=== PATIENT | female | born 1965 | race Caucasian/White ===

== ENCOUNTER → 2018-02-12 15:50 | Outpatient (CLI) | payer OTHER, SELFPAY ==
--- NOTE | 2018-02-12 15:52 | BD_ITS ---
STUDY: DUAL ENERGY X-RAY ABSORPTIOMETRY / DXA REASON FOR EXAM: Female, 52 years old. Surgical menopause at age 52. Hormone therapy for 7 months. Moderate exercise. Family history of osteopenia. TECHNIQUE: Bone Mineral Density (BMD) measurements of lumbar spine and bilateral hips were obtained. COMPARISON: None. FINDINGS: Lumbar Spine (L1-L4): g/cm2 (1.168) / T-score (0.0) / Z-score (0.7) Findings are suggestive of normal bone density with a low fracture risk. Left Femur Total: g/cm2 (1.172) / T-score (1.3) / Z-score (1.9) Left Femoral Neck: g/cm2 (0.979) / T-score (-0.4) / Z-score (0.5) Right Femur Total: g/cm2 (1.170) / T-score (1.3) / Z-score (1.9) Right Femoral Neck: g/cm2 (1.005) / T-score (-0.2) / Z-score (0.7) BD/Dexa Bone Density Study IMPRESSION: The patient is considered normal as outlined below according to World An[employer] Organization (WHO) criteria with a low fracture risk. Reference Information: The T-score is the number of standard deviations above or below the standard which is normal for young adults at their peak bone mineral density. The World Health Organization (WHO) interprets the T-scores as follows: Above -1 Normal bone density Between -1 and -2.5 Osteopenia Equal to / or below -2.5 Osteoporosis As a practical clinical guideline, osteopenia may be graded as follows: Mild -1 through -1.5 Moderate -1.6 through -2.0 Severe -2.1 through -2.4 The Z-score is the number of standard deviations above or below age-matched controls. A Z-score of less than -1.5 would be considered abnormal. References: 1. NIH Osteoporosis and Related Bone Diseases http://www.osteo.org 2. International Society for Clinical Densitometry http://www.iscd.org 3. National Osteoporosis Foundation http://www.nof.org Electronically Signed: Ty Hardin DO at 11:36 EDT Tel [phone], Service support ,
== END ==
PROVIDERS: Family Provider Family Medicine; PCP Family Medicine; Visit Provider Family Medicine
DX: N95.9 Unspecified menopausal and perimenopausal disorder (principal)
CPT/HCPCS: 77080

== ENCOUNTER → 2018-02-15 15:49 | Outpatient (CLI) | payer OTHER, SELFPAY ==
--- NOTE | 2018-02-15 15:52 | BI_ITS ---
MAMMOGRAPHY - BILATERAL SCREENING REASON FOR EXAM: Female, 52 years old. Routine annual screening examination. PERTINENT HISTORY: Aunt with breast cancer. TECHNIQUE: Digital bilateral breast makenzie (3D mammographic acquisition) in the CC and MLO projections. 2-D mediolateral oblique (MLO) and craniocaudad (CC) views of both breasts were obtained. CAD: Full Field Digital Mammography with Computer Added Detection was performed. COMPARISON: Comparison is made with prior study dated December 01, 2016 and September 10, 2015. FINDINGS: Breast Composition: There are scattered areas of fibroglandular density. There are no dominant masses or suspicious calcifications. Stable bilateral benign appearing axillary lymph nodes. No other significant abnormalities are identified. There has been no significant change since the prior study. BI/SCREENING MAMM (CAD), BILAT IMPRESSION: Stable bilateral screening mammogram. Yearly follow-up mammogram recommended. (A) ASSESSMENT CATEGORY: BIRADS Category 2: Benign. A letter regarding these results will be sent to the patient by the facility within 30 days. Approximately 10% of breast cancers are not detected by mammography. A normal mammogram should not delay biopsy of a clinically suspicious abnormality. [id number] Electronically Signed: iWlmer Hartley MD at 8:39 EDT Tel [phone], Service support ,
== END ==
PROVIDERS: Family Provider Family Medicine; PCP Family Medicine; Visit Provider Family Medicine
DX: Z12.31 Encounter for screening mammogram for malignant neoplasm of breast (principal)
CPT/HCPCS: 77063; 77067

== ENCOUNTER 2018-02-27 12:01 | Day surgery (SDC) | payer OTHER, SELFPAY ==
[2018-02-18 17:24] LABS: Hematocrit 42.3 % (37-47); Hemoglobin 14.1 g/dl (12.0-15.0); Mean Corp Hgb Conc 33.3 g/gl (32-36); Mean Platelet Vol. 8.7 fl (6.2-12.0); Platelet Count 347 K/mm3 (150-450); RBC Distribution Width CV 14.7 % (11.6-14.6); RBC Distribution Width SD 43.5 fl (35.1-43.9); Red Blood Count 5.22 M/mm3 (4.2-5.4); White Blood Count 11.5 K/mm3 (4.4-11.0)
[2018-02-18 17:29] LABS: Scan Indicated on CBC? Y/N NO
[2018-02-18 17:56] LABS: Prothrombin Time (Protime)PT. 12.7 SECONDS (11.7-14.9)
[2018-02-18 17:57] LABS: Partial Thromboplast Time 29.8 Seconds (24.1-36.2)
[2018-02-27] VITALS (11 sets, daily range): BP systolic 94–139; BP diastolic 63–90; PULSE 47–82; RESP 14–18; TEMP 36.1–36.8; O2SAT 94–99; BMI 36.3
--- NOTE | 2018-02-27 12:11 | EKG12_ITS ---
Test Reason : PRE OP Blood Pressure : / mmHG Vent. Rate : 062 BPM Atrial Rate : 062 BPM P-R Int : 172 ms QRS Dur : 088 ms QT Int : 416 ms P-R-T Axes : 042 026 051 degrees QTc Int : 422 ms Normal sinus rhythm with sinus arrhythmia Nonspecific T wave abnormality Abnormal ECG When compared with ECG of 16-JUL-2017 16:55, No significant change was found Confirmed by CARLOS EDUARDO CROOK, HOLLAND ([id number]), editorial manager KATY DIANE ([id number]) on 03/01/2018 9:47:20 AM Referred By: Monae Gutierrez Confirmed By:HOLLAND THIBODEAUX MD
[2018-02-27 12:42] LABS: Anion Gap 6 (5-15); BUN 16 mg/dL (7-18); BUN/Creat Ratio 20.7 RATIO (10-20); Calcium,Total 8.8 mg/dL (8.5-10.1); Chloride 106 mmol/L (98-107); Creatinine, Serum 0.77 mg/dL (0.55-1.02); EST Glomerular Filtration Rate 83 mL/min (>60); Est Glom Filt Rate - Afr Amer 100 mL/min (>60); Glucose 88 mg/dL (74-106); Potassium 3.7 mmol/L (3.5-5.1); Sodium Level 141 mmol/L (136-145)
--- NOTE | 2018-02-27 13:25 | VAGMU_PTH ---
PATIENT: UDAY OLIVIER LOC: [facility] [place] U#:[id number] AGE/SX: 52/F ROOM: RE02/27/[address]: Dr. Monae Gutierrez MD : [id number] BED: DIS: 02/28/2018 SPEC #: [id number] RECD: 02/28/18 09:15 STATUS: EARNEST RICA #: [id number] GENEVA: 02/27/18 13:[address]: Monae Gutierrez DEPT: SURGICAL PATHOLOGY RECD BY: Brock Odonnell ENTERED: 02/28/18 09:39 SP TYPE: VAG MUCOSA OTHR DR: Dr. Jinny Bejarano MD Tissues: Vagina, NOS Procedures: Surgery Specimen Level III HEADER OPERATION: Repair, anterior PRE-OP DIAGNOSIS: cystocele TISSUE SUBMITTED: Vaginal mucosa MICROSCOPIC DIAGNOSIS Vaginal mucosa, tear repair: Fragments of squamous mucosa with reactive changes. SJ:ajay 03/01/18 MICROSCOPIC DESCRIPTION Slides are reviewed. GROSS DESCRIPTION Received in fixative is one container labeled with the patient's name and designated vaginal mucosa. The specimen consists of two pieces of bradley mucosal tissue measuring in aggregate 4.5 x 2.5 x 0.8 cm. No mucosal lesion is identified. Multiple instrumentation aragon are noted. Assembler Fluorescent Lights sections are submitted in 1 cassette. HANSA:ajay 02/28/18 TC:5 CPT: 01230
--- NOTE | 2018-02-27 16:02 | OP.PCM_ITS ---
Operative Report Date of Procedure: 02/27/18 PROCEDURE: Anterior repair Preoperative diagnosis: Moderate cystocele Postop diagnosis: Moderate cystocele Anesthesia: General TRAVIS Escamilla and Dr Cary Surgeon: Monae Gutierrez MD Lamination Assembler: INDRA Molina RN EBL 50 cc Complications: none Drains: Gaming draining clear yellow urine , 30+ cc for case Fluids: replacement LR 800 cc Findings: On exam under anesthesia, the vaginal apex is well supported. Apical cystocele noted with good UVJ support. PATH: Strips of vaginal mucosa. Narrative account: After the risks, benefits and alternatives of the procedure were reviewed with the patient , informed consent was obtained. The patient was taken to the Operating room with an IV running . She was positioned in the dorsal supine position on the operating table and given general anesthesia. Once asleep she was positioned to the dorsal lithotomy position and prepped and draped in the usual sterile fashion. A Gaming catheter was inserted to drain the bladder and left open to drain in the drape and then clamped with a Valencia clamp. The weighted speculum was placed into the vagina and an Allis clamp was placed at the vaginal apex at the corners. A transverse incision was created using the knife and the anterior vaginal mucosa was undermined, dissecting it free from from the underlying pubovesical cervical fascia from the vaginal cuff to a point approximately 1-2 cm away from the urethra. A linear incision was made along the anterior vaginal wall as this step was accomplished. Valencia plication stitches of 1 Vicryl were then placed, reducing the cystocele. The anterior vaginal mucosa was trimmed and the anterior vaginal incision was then repaired with interrupted and figure of eight stitches of 2-0 chromic. Excellent hemostasis was noted. A vaginal packing was then inserted: 1 plain gauze The Gaming was attached to the Gaming bag and clear yellow urine returned. The patient was returned to dorsal supine position and a peripad was placed. She was awakened from general anesthesia and was then transferred to the recovery room bed in stable condition after tolerating the procedure well. Sponge, lap, needle and instrument counts correct times two. Medications given preop and intraoperatively included: Cefotetan IV given marketing automation manager to the operating room. For a complete listing of medications given preop and intraoperatively, please see the anesthesia record.
[2018-02-27] MEDS: Ketorolac 30 MG/ML Syringe IV ×2 (16:06→21:43)
[2018-02-27] MEDS: Lactated Ringers 1,000 ML 125 ML IV (19:57)
[2018-02-27] MEDS: HYDROcodone Bitartrate/Apap 5/325 Tablet PO (19:57)
[2018-02-27] MEDS: Temazepam 15 MG Capsule PO (23:38)
[2018-02-28 03:00] VITALS: BP 102/59; PULSE 48; RESP 16; TEMP 36.6; O2SAT 97
[2018-02-28] MEDS: Ketorolac 30 MG/ML Syringe IV ×2 (03:18→10:33)
[2018-02-28] MEDS: Lactated Ringers 1,000 ML 125 ML IV (03:18)
[2018-02-28 06:36] LABS: Hematocrit 33.4 % (37-47); Hemoglobin 10.7 g/dl (12.0-15.0); Mean Corpuscular Hgb 26.7 pg (27.0-32.0); Mean Corpuscular Volume 83.3 fL (81-99); Mean Platelet Vol. 8.7 fl (6.2-12.0); Platelet Count 250 K/mm3 (150-450); RBC Distribution Width CV 14.5 % (11.6-14.6); RBC Distribution Width SD 43.5 fl (35.1-43.9); Red Blood Count 4.01 M/mm3 (4.2-5.4); White Blood Count 8.5 K/mm3 (4.4-11.0)
[2018-02-28 06:44] LABS: Scan Indicated on CBC? Y/N NO
[2018-02-28] MEDS: Acetaminophen 500 MG Tablet 1000 MG PO (06:54)
[2018-02-28 07:11] VITALS: O2SAT 95
--- NOTE | 2018-02-28 07:43 | PN_ITS ---
Subjective: pod#1 Anterior repair Doing well. no concerns voiced. minimal bleeding. Gaming still in place. IV to S/L Used [place] single dose last pm but declines need of any more. Pain minmima. No N/V. Hoping to go home today. Spouse here visiting prior to going to work. Will return later Objective: Sitting up in chair. Moves around room easily. NAD. - Physical Exam General: Alert, Oriented x3, Cooperative, No apparent distress HEENT: Atraumatic Neck: Supple Abdomen: Soft, Non Tender - Perineum: minimal old bld on packing, removed. Fresh peripad given to apply Extremities: No clubbing, No cyanosis, No edema Neurological: Cranial nerves II-XII grossly intact Psych/Mental Status: Normal Affect Vital Signs Temp Pulse Resp BP Pulse Ox 98 F 48 L 16 102/59 L 95 02/28/ 03:00 02/28/18 03:00 02/28/18 03:00 02/28/18 03:00 02/28/18 07:11 Oxygen Delivery Method Room Air Weight: 93 kg Body Mass Index (BMI) 36.3 Intake and Output for Last 24 Hours 02/26/18 02/27/18 02/28/18 23:59 23:59 23:59 Intake Total 4502 / 4502 2486 / 2486 Output Total 1670 / 1670 250 / 250 Balance 2832 / 2832 2236 / 2236 Laboratory Tests Past 24 Hrs 02/27/18 02/28/18 12:25 06:00 WBC 8.5 RBC 4.01 L Hgb 10.7 L Hct 33.4 L MCV 83.3 MCH 26.7 L MCHC 32.0 RDW 14.5 RDW Differential 43.5 Plt Count 250 MPV 8.7 Sodium 141 Potassium 3.7 Chloride 106 Carbon Dioxide 29.0 Anion Gap 6 BUN 16 Creatinine 0.77 Estim Creat Clear Calc 69.90 Est GFR (MDRD) Af Amer 100 Est GFR (MDRD) Non-Af 83 BUN/Creatinine Ratio 20.7 H Glucose 88 Calcium 8.8 Medical Necessity - Tobacco Use Smoking Status: Never smoker Assessment/Plan POD#1 Anterior repair Stable postop. Increase diet and activity as tolerated. remove Gaming for voiding trial. Dischg home later today if criteria met.
--- NOTE | 2018-02-28 07:44 | PCM.DC ---
You will use the following diet at home:: No restrictions Discharge Activity: May Shower, May Take a Tub Bath - OK to drive if not taking narcotics Return to work on:: 04/15/18 May resume sexual activity in: 6 weeks Lifting Restrictions: 20 # limit for 4-6 wk to allow healing Call your doctor if you observe: Fever of 101 or Higher, Inability to urinate, Inability to have a bowel movement, Using more than one pad per hour, Uncontrolled pain Additional Instructions: Take tylenol 500 mg tabs (1-2 by mouth every 8 hrs as needed for pain). In addition to tylenol you may take EITHER : one or two Aleve every 8 hr by mouth OR Ibuprofen 200 mg tabs 2-3 every 6 hr as needed for pain. Allergies/Adverse Reactions: Allergies codeine Adverse Reaction (Verified 07/12/17 15:13) PANIC ATTACKS oxycodone [From OxyContin] Adverse Reaction (Verified 02/20/18 11:52) Other DIDN'T FEEL LIKE HERSELF, JITTERY Medications to take at Discharge Hydrochlorothiazide 25 mg PO DAILY 10/10/14 Metoprolol(XL)Succ [Toprol Xl (Beta Kailee)] 100 mg PO DAILY 10/10/14 Magnesium 250 mg PO DAILY 07/12/17 [place]-3 Fatty Acids/Fish Oil [Fish Oil 1,000 mg Capsule] 1 tab PO DAILY 07/12/17 Temazepam [Restoril] 15 mg PO QHS 07/12/17 Ibuprofen 800 mg PO Q8H PRN PRN #30 tablet 07/18/17 Losartan Potassium [Cozaar] 25 mg PO DAILY 07/18/17 Estradiol 1 mg PO DAILY 02/20/18 Potassium Chloride [K-Dur] 20 meq PO DAILY 02/20/18 traZODone [Desyrel] 75 mg PO QHS 02/22/18 Primary Care Physician: Jinny Bejarano MD [Primary Care Provider] - Please Follow Up With: Monae Gutierrez MD - [phone] When: in two weeks as scheduled for follow up appointment. Proposed Discharge Date: 02/28/18
--- NOTE | 2018-02-28 07:47 | DCINST_ITS ---
You will use the following diet at home:: No restrictions Discharge Activity: May Shower, May Take a Tub Bath - OK to drive if not taking narcotics Return to work on:: 04/15/18 May resume sexual activity in: 6 weeks Lifting Restrictions: 20 # limit for 4-6 wk to allow healing Call your doctor if you observe: Fever of 101 or Higher, Inability to urinate, Inability to have a bowel movement, Using more than one pad per hour, Uncontrolled pain Additional Instructions: Take tylenol 500 mg tabs (1-2 by mouth every 8 hrs as needed for pain). In addition to tylenol you may take EITHER : one or two Aleve every 8 hr by mouth OR Ibuprofen 200 mg tabs 2-3 every 6 hr as needed for pain. Allergies/Adverse Reactions: Allergies codeine Adverse Reaction (Verified 07/12/17 15:13) PANIC ATTACKS oxycodone [From OxyContin] Adverse Reaction (Verified 02/20/18 11:52) Other DIDN'T FEEL LIKE HERSELF, JITTERY Medications to take at Discharge Hydrochlorothiazide 25 mg PO DAILY 10/10/14 Metoprolol(XL)Succ [Toprol Xl (Beta Kailee)] 100 mg PO DAILY 10/10/14 Magnesium 250 mg PO DAILY 07/12/17 [place]-3 Fatty Acids/Fish Oil [Fish Oil 1,000 mg Capsule] 1 tab PO DAILY Temazepam [Restoril] 15 mg PO QHS 07/12/17 Ibuprofen 800 mg PO Q8H PRN PRN #30 tablet 07/18/17 Losartan Potassium [Cozaar] 25 mg PO DAILY 07/18/17 Estradiol 1 mg PO DAILY 02/20/18 Potassium Chloride [K-Dur] 20 meq PO DAILY 02/20/18 traZODone [Desyrel] 75 mg PO QHS 02/22/18 Primary Care Physician: Jinny Bejarano MD [Primary Care Provider] - Please Follow Up With: Monae Gutierrez MD - [phone] When: in two weeks as scheduled for follow up appointment. Proposed Discharge Date: 02/28/18
[2018-02-28 08:00] VITALS: PULSE 60
[2018-02-28] MEDS: Estradiol 0.5 MG Tablet 1 MG PO (08:44)
[2018-02-28 08:49] VITALS: BP 129/79; PULSE 61; RESP 16; TEMP 36.7; O2SAT 97
[2018-02-28 10:33] VITALS: PULSE 60
[2018-02-28] MEDS: Enoxaparin 40 MG/0.4 ML Syringe SC (10:33)
[2018-02-28] MEDS: Metoprolol(XL)Succ 100 MG Tablet PO (10:33)
[2018-02-28] MEDS: 0.9% NaCl Peripheral Flush Adult/Peds IV (10:33)
[2018-02-28] MEDS: Losartan Potassium 25 MG Tablet PO (10:33)
[2018-02-28] MEDS: hydroCHLOROthiazide 25 MG Tablet PO (10:33)
[2018-02-28 10:49] VITALS: BP 122/73; PULSE 61; RESP 18; TEMP 36.7; O2SAT 97
== END 2018-02-28 11:41 | disposition home or self-care (01) ==
LOC: SDC 12:01 → AC 12:02 → MS3 16:38
PROVIDERS: Family Provider Family Medicine; PCP Family Medicine; Visit Provider Obstetrics & Gynecology
PROC: (CPT 57240; principal; 2018-02-27 13:10)
DX: N81.11 Cystocele, midline (principal); I10 Essential (primary) hypertension; G25.81 Restless legs syndrome; F32.9 Major depressive disorder, single episode, unspecified; F41.9 Anxiety disorder, unspecified; Z78.0 Asymptomatic menopausal state; Z79.899 Other long term (current) drug therapy
CPT/HCPCS: 00942; 57240; 36415; 80048; 85027; 85610; 85730; 86850; 86900; 88304; 93005; 99251; J7120; A4216; G0463; J2405

== ENCOUNTER 2018-08-07 06:27 | Emergency (ER) | payer OTHER, SELFPAY ==
[2018-08-07 06:30] VITALS: BP 186/100; PULSE 122; RESP 18; TEMP 36.9; O2SAT 99; BMI 39.4
[2018-08-07 06:34] VITALS: O2SAT 99
--- NOTE | 2018-08-07 06:57 | RAD_ITS ---
STUDY: X-RAY CHEST REASON FOR EXAM: Female, 53 years old. Dyspnea for one week. Palpitations. TECHNIQUE: PA and lateral chest. COMPARISON: 10/10/2014. FINDINGS: The lungs are clear and expanded. There is no demonstrated pleural abnormality. Normal size heart. Normal mediastinum and boaz. Normal visualized pulmonary arteries. Normal visualized aortic arch and descending thoracic aorta. Normal visualized thoracic spine. Normal visualized ribs, clavicles, and shoulders. There is no demonstrated abnormality of the visualized soft tissue structures of the upper abdomen. RAD/Chest PA and Lateral IMPRESSION: No acute cardiopulmonary disease. Electronically Signed: Sergei Silvestre MD at 7:26 EST , Service support ,
--- NOTE | 2018-08-07 06:57 | EKG12_ITS ---
Test Reason : SOB Blood Pressure : / mmHG Vent. Rate : 120 BPM Atrial Rate : 120 BPM P-R Int : 152 ms QRS Dur : 090 ms QT Int : 336 ms P-R-T Axes : 056 024 054 degrees QTc Int : 474 ms Sinus tachycardia Nonspecific ST abnormality Abnormal ECG Confirmed by CARLOS EDUARDO CROOK, HOLLAND ([id number]), features editor VANIA DAVIS ([id number]) on 08/09/2018 2:35:53 PM Referred By: Confirmed By:HOLLAND THIBODEAUX MD
--- NOTE | 2018-08-07 06:59 | ED.DCSUM_ITS ---
- ER Visit Summary Date of Service: 08/07/18 Chief Complaint: Shortness of breath History of Present Illness: The patient is a 53 F who presents with shortness of breath. Over the past 1-1/2 weeks she has intermittently had episodes where she feels short of breath lightheaded and feels like her heart is racing. This can last 30-45 minutes at a time. Currently she is asymptomatic. No chest pain. No fevers. No vomiting or diarrhea. She does have a history of prior similar symptoms. She had a heart catheterization 10 years ago. She did have some transient atrial fibrillation afterwards. She has not anticoagulated this time. She denies any recent travel surgery mobilization or history of DVT or pulmonary embolism. Physical Examination: Blood pressure 186/100, heart rate 122 vitals otherwise normal Moist mucous membranes Heart regular rhythm tachycardia Lungs are clear Abdomen soft nontender Alert Test Results: EKG shows sinus rhythm at a rate of 120. Chest x-ray and laboratory studies including troponin and d-dimer are pending. Emergency Department Course and Treatment: Initial evaluation as above. Labs have been ordered including d-dimer given her tachycardia shortness of breath and lightheadedness. At the time my reevaluation heart rate was less than 100. Patient will be signed out to the oncoming physician to follow-up on results and make final disposition. Treatment Plan: [] Disposition: [] Impression: [] This note was generated with [employer] dictation software. It may contain incorrect words, spelling, and punctuation that were not noted in review of the chart prior to signing ED Disposition - Plan for ED Patient: Chief Complaint: Shortness of Breath Referrals: Jinny Bejarano MD [Primary Care Provider] -
[2018-08-07 07:14] LABS: D-Dimer Quantitative (DVT/PE) 0.39 FEU/ug/m (0.27-0.49)
[2018-08-07 07:16] LABS: Absolute Lymphocyte Count 2.43 X10^3/ul (0.83-4.51); Absolute Neutrophil Count 7.6 X10^3/uL (2.0-7.7); Basophil# 0.03 X10^3/uL; Basophil% 0.3 % (0-1); Eosinophil# 0.23 X10^3/uL; Eosinophils% 2.1 % (0-5); Hematocrit 43.5 % (37-47); Hemoglobin 14.4 g/dl (12.0-15.0); Lymphocyte # 2.43 X10^3/ul (4.0); Mean Corp Hgb Conc 33.1 g/gl (32-36); Mean Corpuscular Hgb 26.9 pg (27.0-32.0); Mean Corpuscular Volume 81.2 fL (81-99); Mean Platelet Vol. 8.8 fl (6.2-12.0); Monocyte# 0.67 X10^3/uL; Monocyte% 6.1 % (0-10); Neutrophil # 7.63 X10^3/uL (2.7-7.7); Platelet Count 388 K/mm3 (150-450); RBC Distribution Width CV 14.8 % (11.6-14.6); RBC Distribution Width SD 43.9 fl (35.1-43.9); Red Blood Count 5.36 M/mm3 (4.2-5.4)
[2018-08-07 07:20] LABS: POSITIVE COUNT NO; POSITIVE DIFFERENTIAL NO; POSITIVE MORPHOLOGY NO
--- NOTE | 2018-08-07 07:30 | ED.DEP ---
ED Disposition - Plan for ED Patient: Chief Complaint: Shortness of Breath Instructions: ED Palpitations Referrals: Jinny Bejarano MD [Primary Care Provider] -
[2018-08-07 07:32] LABS: BUN 16 mg/dL (7-18); Creatinine, Serum 0.93 mg/dL (0.55-1.02); Glucose 106 mg/dL (74-106)
[2018-08-07 07:33] LABS: Anion Gap 9 (5-15); BUN/Creat Ratio 17.2 RATIO (10-20); Calcium,Total 8.9 mg/dL (8.5-10.1); Chloride 104 mmol/L (98-107); EST Glomerular Filtration Rate 67 mL/min (>60); Est Glom Filt Rate - Afr Amer 81 mL/min (>60); Estimated Creatinine Clearance 54.69 ml/min; Potassium 2.7 mmol/L (3.5-5.1); Sodium Level 138 mmol/L (136-145)
--- NOTE | 2018-08-07 07:35 | ED.DEP ---
ED Disposition - Plan for ED Patient: Chief Complaint: Shortness of Breath Instructions: ED Palpitations, ED Potassium Deficiency Prescriptions: Potassium Chloride [K-Dur] 40 meq PO DAILY #6 tab Referrals: Jinny Bejarano MD [Primary Care Provider] -
[2018-08-07 07:46] VITALS: BP 122/87; PULSE 83; RESP 16; O2SAT 97
== END 2018-08-07 07:50 | disposition home or self-care (01) ==
LOC: ED 07:09
PROVIDERS: Emergency Provider Emergency Medicine; Family Provider Family Medicine; PCP Family Medicine
DX: R00.2 Palpitations (principal); E87.6 Hypokalemia; R06.00 Dyspnea, unspecified; I10 Essential (primary) hypertension; Z79.899 Other long term (current) drug therapy
CPT/HCPCS: 71046; 80048; 84484; 85025; 85379; 93005; 99284

== ENCOUNTER → 2018-09-09 14:16 | Outpatient (CLI) | payer OTHER, SELFPAY ==
[2018-09-09 16:06] LABS: Anion Gap 10 (5-15); BUN 24 mg/dL (7-18); BUN/Creat Ratio 27.6 RATIO (10-20); Calcium,Total 8.7 mg/dL (8.5-10.1); Chloride 106 mmol/L (98-107); Creatinine, Serum 0.87 mg/dL (0.55-1.02); EST Glomerular Filtration Rate 72 mL/min (>60); Est Glom Filt Rate - Afr Amer 87 mL/min (>60); Glucose 93 mg/dL (74-106); Magnesium 2.1 mg/dL (1.6-2.6); Potassium 3.8 mmol/L (3.5-5.1); Sodium Level 140 mmol/L (136-145)
[2018-09-09 16:28] LABS: Rubella IgG 131.8 IU/mL
[2018-09-12 14:55] LABS: Mumps Antibody,IgG 85.2 AU/mL (Immune >10.9); Rubeola IgG Ab 81.7 AU/mL (Immune >29.9)
== END ==
PROVIDERS: Family Provider Family Medicine; PCP Family Medicine; Visit Provider Family Medicine
DX: Z00.00 Encounter for general adult medical examination without abnormal findings (principal); E87.6 Hypokalemia; I10 Essential (primary) hypertension
CPT/HCPCS: 36415; 80048; 83735; 86735; 86762; 86765

== ENCOUNTER → 2019-05-21 07:07 | Outpatient (CLI) | payer OTHER, SELFPAY ==
--- NOTE | 2019-05-21 07:09 | BI_ITS ---
MAMMOGRAPHY - BILATERAL SCREENING REASON FOR EXAM: Female, 53 years old. Routine annual screening examination. PERTINENT HISTORY: Aunt with breast cancer. TECHNIQUE: Digital bilateral breast jai (3D mammographic acquisition) in the CC and MLO projections. 2-D mediolateral oblique (MLO) and craniocaudad (CC) views of both breasts were obtained. CAD: Full Field Digital Mammography with Computer Added Detection was performed. COMPARISON: Comparison is made with prior study dated February 15, 2018 and December 01, 2016. FINDINGS: Breast Composition: There are scattered areas of fibroglandular density. There are no dominant masses or suspicious calcifications. Stable appearance of the bilateral axillary lymph nodes. No other significant abnormalities are identified. There has been no significant change since the prior study. BI/SCREEN MAMM (CAD) W/JAI BILAT IMPRESSION: Stable bilateral screening mammogram. Yearly follow-up mammogram recommended. (A) ASSESSMENT CATEGORY: BIRADS Category 2: Benign. A letter regarding these results will be sent to the patient by the facility within 30 days. Approximately 10% of breast cancers are not detected by mammography. A normal mammogram should not delay biopsy of a clinically suspicious abnormality. [id number] Electronically Signed: Wilmer Hartley, at 9:16 EDT , Service support ,
== END ==
PROVIDERS: Family Provider Family Medicine; PCP Family Medicine; Referring Provider Family Medicine; Visit Provider Family Medicine
DX: Z12.31 Encounter for screening mammogram for malignant neoplasm of breast (principal)
CPT/HCPCS: 77063; 77067

== ENCOUNTER → 2020-05-24 07:02 | Outpatient (CLI) | payer BC, SELFPAY ==
--- NOTE | 2020-05-24 07:04 | BI_ITS ---
MAMMOGRAPHY - BILATERAL SCREENING REASON FOR EXAM: Female, 54 years old. Routine annual screening examination. PERTINENT HISTORY: Aunt with breast cancer. TECHNIQUE: Digital bilateral breast jai (3D mammographic acquisition) in the CC and MLO projections. 2-D mediolateral oblique (MLO) and craniocaudad (CC) views of both breasts were obtained. CAD: Full Field Digital Mammography with Computer Added Detection was performed. COMPARISON: Comparison is made with prior examination dated 05/21/2019 and 02/15/2018. FINDINGS: Breast Composition: There are scattered areas of fibroglandular density. There are no dominant masses or suspicious calcifications. Stable benign-appearing bilateral axillary lymph nodes. No other significant abnormalities are identified. There has been no significant change since the prior study. BI/SCREEN MAMM (CAD) W/JAI BILAT IMPRESSION: Stable bilateral screening mammogram. Yearly follow-up mammogram recommended. (A) ASSESSMENT CATEGORY: BIRADS Category 2: Benign. A letter regarding these results will be sent to the patient by the facility within 30 days. Approximately 10% of breast cancers are not detected by mammography. A normal mammogram should not delay biopsy of a clinically suspicious abnormality. [id number] Electronically Signed: Wilmer Hartley, at 9:16 EDT , Service support ,
[2020-05-24 09:13] LABS: Absolute Lymphocyte Count 1.27 X10^3/uL (0.83-4.51); Absolute Neutrophil Count 7.2 X10^3/uL (2.0-7.7); Basophil# 0.04 X10^3/uL; Basophil% 0.4 % (0-1); Eosinophil# 0.16 X10^3/uL; Eosinophils% 1.7 % (0-5); Hematocrit 43.8 % (37-47); Hemoglobin 13.7 g/dL (12.0-15.0); Lymphocyte # 1.27 X10^3/ul (4.0); Lymphocyte % 13.5 % (19-41); Mean Corp Hgb Conc 31.3 g/dL (32-36); Mean Corpuscular Hgb 26.8 pg (27.0-32.0); Mean Corpuscular Volume 85.7 fL (81-99); Mean Platelet Vol. 8.6 fl (6.2-12.0); Monocyte# 0.62 X10^3/uL; Monocyte% 6.6 % (0-10); NRBC Flagged by Analyzer 0 % (0-5); Neutrophil # 7.24 X10^3/uL (2.7-7.7); Neutrophil % 76.9 % (47-70); Platelet Count 331 K/mm3 (150-450); RBC Distribution Width CV 14.8 % (11.6-14.6); RBC Distribution Width SD 46.5 fl (35.1-43.9); Red Blood Count 5.11 M/mm3 (4.2-5.4); White Blood Count 9.4 K/mm3 (4.4-11.0)
[2020-05-24 09:54] LABS: ALB/GLOB Ratio 0.8 RATIO (0.9-2.4); AST(SGOT) 14 U/L (15-37); Alanine Aminotransfer ALT/SGPT 16 U/L (13-56); Albumin, Serum 3.6 g/dL (3.2-5.0); Alkaline Phosphatase 100 U/L (45-117); Anion Gap 6 (5-15); BUN 19 mg/dL (7-18); BUN/Creat Ratio 22.5 RATIO (10-20); Calcium,Total 9.1 mg/dL (8.5-10.1); Chloride 108 mmol/L (98-107); Cholesterol 220 mg/dL (200); Creatinine, Serum 0.85 mg/dL (0.55-1.02); EST Glomerular Filtration Rate 74 mL/min (>60); Est Glom Filt Rate - Afr Amer 90 mL/min (>60); Globulin 4.3 g/dL (2.2-4.2); Glucose 90 mg/dL (74-106); High Density Lipoprotein 37 mg/dL; Potassium 4.1 mmol/L (3.5-5.1); Protein, Total 7.9 g/dL (6.4-8.2); Sodium Level 140 mmol/L (136-145); Triglycerides 240 mg/dL; Very Low Density Lipoprotein 48 mg/dL (5-40)
== END ==
PROVIDERS: PCP Family Medicine; Referring Provider Family Medicine; Visit Provider Family Medicine
DX: I10 Essential (primary) hypertension (principal); E87.6 Hypokalemia; E78.5 Hyperlipidemia, unspecified; Z12.31 Encounter for screening mammogram for malignant neoplasm of breast
CPT/HCPCS: 36415; 77063; 77067; 80053; 80061; 85025

== ENCOUNTER → 2021-06-09 07:22 | Outpatient (CLI) | payer BC, SELFPAY ==
--- NOTE | 2021-06-09 07:25 | BI_ITS ---
MAMMOGRAPHY - BILATERAL SCREENING 3-D TOMOSYNTHESIS REASON FOR EXAM: Female, 55 years old. SCREENING PERTINENT HISTORY: No significant family history. TECHNIQUE: 2-D mammograms and 3-D Tomosynthesis of the breast (s) were performed. CAD was performed. COMPARISON: 05/24/2020 FINDINGS: The breast composition is heterogeneously dense that can obscure small breast masses. Scattered benign calcifications are seen. No dense spiculated masses or suspicious microcalcifications are identified. No architectural distortion is identified. There is no skin thickening or retraction. There has been no significant change since the prior study. BI/SCREENING MAMM (CAD), BILAT IMPRESSION: No mammographic signs of malignancy. Routine yearly mammograms recommended. ASSESSMENT CATEGORY: BIRADS Category 1: Negative. A letter regarding these results will be sent to the patient by the facility within 30 days. FOLLOW UP RECOMMENDATION: Yearly follow up mammogram recommended. (A) Approximately 10% of breast cancers are not detected by mammography. A normal mammogram should not delay biopsy of a clinically suspicious abnormality. Electronically Signed: Brock Cochran MD at 11:29 EDT Tel , Service support ,
== END ==
PROVIDERS: PCP Family Medicine; Referring Provider Family Medicine; Visit Provider Family Medicine
DX: Z12.31 Encounter for screening mammogram for malignant neoplasm of breast (principal)
CPT/HCPCS: 77067

== ENCOUNTER 2021-12-27 15:28 | Emergency (ER) | payer OTHER, SELFPAY ==
[2021-12-27 15:28] VITALS: BP 133/108; PULSE 87; RESP 18; TEMP 36.2; O2SAT 95; BMI 39.9
--- NOTE | 2021-12-27 15:38 | EKG12_ITS ---
Test Reason : CP Blood Pressure : / mmHG Vent. Rate : 087 BPM Atrial Rate : 087 BPM P-R Int : 148 ms QRS Dur : 088 ms QT Int : 362 ms P-R-T Axes : -03 015 044 degrees QTc Int : 435 ms Normal sinus rhythm Nonspecific T wave abnormality Confirmed by KARL CROOK, DARREN ([id number]), social media editor ALONDRA DENNEY ([id number]) on 12/29/2021 8:58:35 AM Referred By: HELEN Confirmed By:DARREN BARAJAS MD
--- NOTE | 2021-12-27 15:40 | ED.VIS.CHEST ---
HPI History of Present Illness Chief Complaint: Chest Pain Detail of Chief Complaint: Chest pain that started an hour and a half ago Informant: patient Onset/Context/Timing Current Severity: 0/10 Maximum Severity: 610 Narrative Narrative: Patient presents to the emergency department with complaint of chest pain that started an hour and a half ago while at work. Patient was sitting at a computer. She developed what she thought was maybe a cramp in the left side of her chest that radiated through to her back. She denied any shortness of breath with it. She denied nausea or vomiting. She denied diaphoresis. Patient states that the pain would not resolve until she arrived in the emergency department. She is not had pain like that before. Patient states that about 20 years ago she had episodes of chest pain and had a heart catheterization at that time that was unremarkable. She denies recent travel or surgery. She has no history of PE or DVT. No significant family history of heart disease at a young age. Patient states the pain is currently resolved. Prior Similar Symptoms: No PFSH PFSH Home Medications hydrochlorothiazide 25 mg PO DAILY 10/10/14 [History Last Taken 02/26/18 10:00] metoprolol succinate 100 mg PO DAILY 10/10/14 [History Last Taken 02/27/18 06:30] magnesium 250 mg PO DAILY 07/12/17 [History Last Taken 02/26/18 10:00] omega-3 fatty acids-fish oil [Fish Oil] 1 tab PO DAILY 07/12/17 [History Last Taken 02/26/18 10:00] temazepam 15 mg PO QHS 07/12/17 [History Last Taken 02/26/18 22:00] losartan 25 mg PO DAILY 07/18/17 [History Last Taken 02/27/18 06:30] estradiol 1 mg PO DAILY 02/20/18 [History Last Taken 02/26/18 08:00] potassium chloride [K-Dur] 20 meq PO DAILY 02/20/18 [History Last Taken 02/26/18 10:00] trazodone 75 mg PO QHS 02/22/18 [History Last Taken 02/26/18 22:00 75 mg] potassium chloride 40 meq PO DAILY #6 tab 08/07/18 [Rx Last Taken Unknown] Allergy/AdvReac Type Severity Reaction Status Date / Time codeine AdvReac PANIC Verified 12/27/21 15:31 ATTACKS oxycodone [From OxyContin] AdvReac Other Verified 12/27/21 15:31 Social History Smoking Status: Never smoker ROS ROS ED Review of Systems ROS Unobtainable: other Constitutional Constitutional ED: Reports lethargy; Denies chills, fever(s), sweats or weight loss Eyes Eyes: Denies blurry vision, change in vision or diplopia ENT ENT ED: Denies rhinorrhea or sore throat Cardiovascular Cardiovascular: Reports chest pain and racing heartbeat; Denies orthopnea Respiratory/Chest Respiratory/Chest: Reports dyspnea and dyspnea on exertion; Denies cough, orthopnea or sputum Gastrointestinal Gastrointestinal: Denies abdominal pain, diarrhea, nausea or vomiting Genitourinary Genitourinary ED: Denies dysuria, hematuria or urinary frequency Musculoskeletal Musculoskeletal: Denies arthralgias, back pain, myalgias or neck pain Integumentary Denies abscess, Abrasions or rash Neurologic Neurologic: Denies headache(s) or weakness Psychiatric Psychiatric: Denies anxiety, depression or suicidal thoughts Endocrine Endocrinology: Denies polydipsia, polyphagia or polyuria Hematologic/Lymphatic Hematologic/Lymphatic: Denies easy bleeding, easy bruising or lymphadenopathy Allergic/Immunologic Allergic/Immunologic ED: Denies mouth swelling, tongue swelling or urticaria EXAM Physical Exam Const Vital Signs: 12/27/21 15:28 12/27/21 15:43 12/27/21 15:44 Temperature 97.2 F L Temperature Source Temporal Pulse Rate 87 Respiratory Rate 18 Respiratory Effort Normal Non-Labored Blood Pressure 133/108 H Blood Pressure Mean 116 Pulse Ox 95 97 Oxygen Delivery Method Room Air Room Air 12/27/21 18:03 Temperature Temperature Source Pulse Rate 69 Respiratory Rate 18 Respiratory Effort Blood Pressure 129/81 H Blood Pressure Mean 97 Pulse Ox 98 Oxygen Delivery Method Room Air Positive well nourished and well developed General Appearance ED: well developed and NAD HEENT Reports TM's clear and moist mucous membranes normocephalic and atraumatic; Negative for trauma or tenderness Tympanic Membrane ED: Yes TM's clear Eyes PERRL and EOMs intact bilaterally General Eye ED: Negative for pale conjunctiva or scleral icterus Neck no lymphadenopathy, supple and no JVD General: Negative for tenderness Chest Wall inspection of chest normal and palpation of chest normal Chest: Negative for tenderness Resp normal respiratory effort and clear to auscultation bilaterally Effort and Inspection: Negative for respiratory distress or pain with movement Auscultation: Negative for rhonchi, wheezes or diminished lung sounds Cardio regular rate, regular rhythm, S1 normal heart sound, S2 normal heart sound and no murmurs Peripheral Pulses: pulses 2+ throughout GI normal to inspection, nondistended, normoactive bowel sounds, soft to palpation, non-tender, non-distended and no masses Back/Spine no CVA tenderness and no thoracic nor lumbar tenderness Extremity normal to inspection General Extremety ED: Negative for edema General Extremity: Negative for edema Neuro oriented x3, CN's II-XII intact bilaterally, no sensory deficits noted and gait normal Sensorium / Orientation: awake, alert, oriented to person, oriented to place and oriented to time Motor Exam: strength 5/5 throughout and strength abnormal Psych mental status grossly normal Skin no rashes or lesions noted and no wounds Heart Score History: Slightly/Non-Suspicious ECG: Normal Age: >45 - <65 years Risk Factors: 1 or 2 Risk Factors Troponin: </= Normal Limit Score: 2 MDM MDM MDM Narrative Medical decision making narrative: IV line established on arrival. Patient was given aspirin. Patient was pain-free on arrival. Lab work-up was normal. I did do a delta troponin given that she had only had pain for about an hour and a half when she arrived and this too was normal. Patient has a heart score of 2 and I feel is very low risk. She remained pain-free in the department. At this point etiology of her chest pain is unclear. I do not feel she is having acute coronary syndrome. Patient advised to return if worsening pain, exertional dyspnea, or condition should worsen anyway. Lab Data Attestation: I reviewed the patient's lab results. Labs: Laboratory Results - last 24 hr 12/27/21 12/27/21 12/27/21 15:42 15:42 15:42 WBC 10.7 RBC 5.11 Hgb 13.8 Hct 42.5 MCV 83.2 MCH 27.0 MCHC 32.5 RDW Std Deviation 43.0 RDW Coeff of Jeremiah 14.2 Plt Count 355 MPV 8.4 Immature Gran % (Auto) 0.600 Neut % (Auto) 75.4 H Lymph % (Auto) 15.5 L Mathews % (Auto) 7.0 Eos % (Auto) 1.1 Baso % (Auto) 0.4 Absolute Neuts (auto) 8.0 H Absolute Lymphs (auto) 1.65 Nucleated RBC % 0 D-Dimer Quant (PE/DVT) 0.29 Sodium 136 Potassium 3.5 Chloride 103 Carbon Dioxide 28.0 Anion Gap 5 BUN 15 Creatinine 0.93 Estim Creat Clear Calc 52.79 Est GFR (MDRD) Af Amer 80 Est GFR (MDRD) Non-Af 66 BUN/Creatinine Ratio 16.1 Glucose 102 Calcium 9.3 Troponin I High Sens 12/27/21 12/27/21 12/27/21 15:42 16:55 17:53 WBC RBC Hgb Hct MCV MCH MCHC RDW Std Deviation RDW Coeff of Jeremiah Plt Count MPV Immature Gran % (Auto) Neut % (Auto) Lymph % (Auto) Mathews % (Auto) Eos % (Auto) Baso % (Auto) Absolute Neuts (auto) Absolute Lymphs (auto) Nucleated RBC % D-Dimer Quant (PE/DVT) Sodium Potassium Chloride Carbon Dioxide Anion Gap BUN Creatinine Estim Creat Clear Calc Est GFR (MDRD) Af Amer Est GFR (MDRD) Non-Af BUN/Creatinine Ratio Glucose Calcium Troponin I High Sens < 3 L 4 3 Radiography Diagnostic Testing: Clinical Impression(s) from Imaging Studies Chest X-Ray 12/27/21 15:48 IMPRESSION: Nonacute portable x-ray examination of the chest. Electronically Signed: Fernando Greenwood MD ([facility]) at 16:03 EDT Reading Location ID and State: [address] [place] [address] , Service support , 1 view chest x-ray obtained interpreted by myself no acute disease process. Radiology in agreement. EKG Initial EKG: Attestation: I personally reviewed and interpreted this EKG as follows: Comments: Sinus rhythm with ventricular rate of 87 bpm with no acute ST segment changes Discharge Plan Triage Chief Complaint: Chest Pain ED Provider: José Miguel Duenas Dx/Rx/DC Orders Clinical Impression: Chest pain Instructions: ED Chest Pain, Uncertain Cause Prescriptions: No Action metoprolol succinate 100 MG tablet 100 mg PO DAILY RF: 0 hydrochlorothiazide 12.5 MG capsule 25 mg PO DAILY RF: 0 temazepam 15 MG capsule 15 mg PO QHS RF: 0 magnesium 250 MG tablet 250 mg PO DAILY RF: 0 omega-3 fatty acids-fish oil [Fish Oil] 1 EACH capsule 1 tab PO DAILY RF: 0 losartan 25 MG tablet 25 mg PO DAILY RF: 0 potassium chloride [Klor-Con M20] 20 MEQ tablet 20 meq PO DAILY RF: 0 estradiol 0.5 MG tablet 1 mg PO DAILY RF: 0 trazodone 50 MG tablet 75 mg PO QHS RF: 0 potassium chloride 20 MEQ tablet 40 meq PO DAILY Qty: 6 RF: 0 Primary Care Provider: Vani Whitten Referrals: Vani Whitten MD [Primary Care Provider] - 3-5 Days Disposition Disposition: Home, Self Care
[2021-12-27 15:43] VITALS: O2SAT 97
--- NOTE | 2021-12-27 15:48 | RAD_ITS ---
STUDY: X-RAY CHEST REASON FOR EXAM: Female, 56 years old. chest pain TECHNIQUE: Single AP portable view of the chest. COMPARISON: None. FINDINGS: The lungs are clear and expanded. There is no demonstrated pleural abnormality. Normal size heart. Normal mediastinum and boaz. Normal visualized pulmonary arteries. Normal visualized aortic arch and descending thoracic aorta. Normal visualized thoracic spine. Normal visualized ribs, clavicles, and shoulders. There is no demonstrated abnormality of the visualized soft tissue structures of the upper abdomen. RAD/Chest 1 View (Portable) IMPRESSION: Nonacute portable x-ray examination of the chest. Electronically Signed: Fernando Greenwood MD ([facility]) at 16:03 EDT ,
[2021-12-27] MEDS: Aspirin 81 MG TAB.CHEW 324 MG PO (15:56)
[2021-12-27] MEDS: 0.9% Normal Saline 1,000 ML 150 ML IV (15:56)
[2021-12-27 15:57] LABS: Absolute Lymphocyte Count 1.65 X10^3/uL (0.83-4.51); Basophil# 0.04 X10^3/uL; Basophil% 0.4 % (0-1); Eosinophil# 0.12 X10^3/uL; Eosinophils% 1.1 % (0-5); Hematocrit 42.5 % (37-47); Hemoglobin 13.8 g/dL (12.0-15.0); Lymphocyte # 1.65 X10^3/ul (0.83-4.51); Lymphocyte % 15.5 % (19-41); Mean Corp Hgb Conc 32.5 g/dL (32-36); Mean Corpuscular Volume 83.2 fL (81-99); Mean Platelet Vol. 8.4 fl (6.2-12.0); Monocyte# 0.75 X10^3/uL; NRBC Flagged by Analyzer 0 % (0-5); Neutrophil # 8.04 X10^3/uL (2.7-7.7); Neutrophil % 75.4 % (47-70); Platelet Count 355 K/mm3 (150-450); RBC Distribution Width CV 14.2 % (11.6-14.6); Red Blood Count 5.11 M/mm3 (4.2-5.4); White Blood Count 10.7 K/mm3 (4.4-11.0)
[2021-12-27 16:08] LABS: D-Dimer Quantitative (DVT/PE) 0.29 FEU/ug/m (0.27-0.49)
[2021-12-27 16:13] LABS: Anion Gap 5 (5-15); BUN 15 mg/dL (7-18); BUN/Creat Ratio 16.1 RATIO (10-20); Calcium,Total 9.3 mg/dL (8.5-10.1); Chloride 103 mmol/L (98-107); Creatinine, Serum 0.93 mg/dL (0.55-1.02); EST Glomerular Filtration Rate 66 mL/min (>60); Est Glom Filt Rate - Afr Amer 80 mL/min (>60); Estimated Creatinine Clearance 52.79 ml/min; Glucose 102 mg/dL (74-106); Potassium 3.5 mmol/L (3.5-5.1); Sodium Level 136 mmol/L (136-145)
[2021-12-27 16:14] LABS: Troponin-I HS (w/2H Reflex) < 3 pg/mL (3.0-54.0)
[2021-12-27 17:21] LABS: Troponin-I HS 4 pg/mL (3.0-54.0)
[2021-12-27 17:55] LABS: Reflex Troponin-HS? (from REC) Y
[2021-12-27 18:03] VITALS: BP 129/81; PULSE 69; RESP 18; O2SAT 98
[2021-12-27 18:18] LABS: Troponin-I HS 3 pg/mL (3.0-54.0)
[2021-12-27 18:45] VITALS: BP 134/76; PULSE 67; RESP 18; O2SAT 97
== END 2021-12-27 18:51 | disposition home or self-care (01) ==
PROVIDERS: Emergency Provider Emergency Medicine; PCP Family Medicine; Visit Provider Emergency Medicine
DX: R07.9 Chest pain, unspecified (principal); R06.00 Dyspnea, unspecified
CPT/HCPCS: 71045; 80048; 84484; 85025; 85379; 93005; 96360; 96361; 99285; J7030; A4216

== ENCOUNTER → 2022-04-28 | Outpatient (CLI) | payer OTHER, SELFPAY ==
[2022-04-28 07:36] LABS: Absolute Lymphocyte Count 1.66 X10^3/uL (0.83-4.51); Absolute Neutrophil Count 6.2 X10^3/uL (2.0-7.7); Basophil# 0.05 X10^3/uL; Basophil% 0.6 % (0-1); Eosinophil# 0.17 X10^3/uL; Eosinophils% 1.9 % (0-5); Hematocrit 43.1 % (37-47); Hemoglobin 13.8 g/dL (12.0-15.0); Lymphocyte # 1.66 X10^3/ul (0.83-4.51); Lymphocyte % 18.9 % (19-41); Mean Corpuscular Volume 84.2 fL (81-99); Mean Platelet Vol. 8.4 fl (6.2-12.0); Monocyte# 0.64 X10^3/uL; Monocyte% 7.3 % (0-10); NRBC Flagged by Analyzer 0 % (0-5); Neutrophil # 6.18 X10^3/uL (2.7-7.7); Neutrophil % 70.4 % (47-70); Platelet Count 366 K/mm3 (150-450); RBC Distribution Width CV 14.6 % (11.6-14.6); RBC Distribution Width SD 44.3 fl (35.1-43.9); Red Blood Count 5.12 M/mm3 (4.2-5.4); White Blood Count 8.8 K/mm3 (4.4-11.0)
[2022-04-28 08:03] LABS: ALB/GLOB Ratio 0.8 RATIO (0.9-2.4); AST(SGOT) 14 U/L (15-37); Alanine Aminotransfer ALT/SGPT 17 U/L (13-56); Albumin, Serum 3.6 g/dL (3.2-5.0); Alkaline Phosphatase 94 U/L (45-117); Anion Gap 4 (5-15); BUN 21 mg/dL (7-18); BUN/Creat Ratio 24.4 RATIO (10-20); Calcium,Total 8.8 mg/dL (8.5-10.1); Chloride 105 mmol/L (98-107); Cholesterol 203 mg/dL (200); Creatinine, Serum 0.86 mg/dL (0.55-1.02); EST Glomerular Filtration Rate 72 mL/min (>60); Est Glom Filt Rate - Afr Amer 87 mL/min (>60); Globulin 4.4 g/dL (2.2-4.2); Glucose 99 mg/dL (74-106); High Density Lipoprotein 38 mg/dL; Potassium 3.6 mmol/L (3.5-5.1); Sodium Level 137 mmol/L (136-145); Triglycerides 264 mg/dL; Very Low Density Lipoprotein 53 mg/dL (5-40)
== END | disposition home or self-care (01) ==
LOC: LAB 06:59
PROVIDERS: PCP Family Medicine; Referring Provider Family Medicine; Visit Provider Family Medicine
DX: Z00.00 Encounter for general adult medical examination without abnormal findings (principal); I10 Essential (primary) hypertension; F51.04 Psychophysiologic insomnia; E87.6 Hypokalemia; E78.1 Pure hyperglyceridemia
CPT/HCPCS: 36415; 80053; 80061; 85025

== ENCOUNTER → 2022-06-23 | Outpatient (CLI) | payer OTHER, SELFPAY ==
--- NOTE | 2022-06-23 10:52 | BI_ITS ---
MAMMOGRAPHY - BILATERAL SCREENING 3-D TOMOSYNTHESIS REASON FOR EXAM: Female, 56 years old. Routine screening PERTINENT HISTORY: No significant family history. TECHNIQUE: 2-D mammograms and 3-D Tomosynthesis of the breast (s) were performed. CAD was performed. COMPARISON: 06/09/2021 FINDINGS: The breast composition is composed of scattered fibroglandular density. Scattered benign calcifications are seen. No dense spiculated masses or suspicious microcalcifications are identified. No architectural distortion is identified. There is no skin thickening or retraction. There has been no significant change since the prior study. BI/SCRN MAMM (CAD)W/JAI BILAT IMPRESSION: No mammographic signs of malignancy. Routine yearly mammograms recommended. ASSESSMENT CATEGORY: BIRADS Category 1: Negative. A letter regarding these results will be sent to the patient by the facility within 30 days. FOLLOW UP RECOMMENDATION: Yearly follow up mammogram recommended. (A) Approximately 10% of breast cancers are not detected by mammography. A normal mammogram should not delay biopsy of a clinically suspicious abnormality. Electronically Signed: Saman Miller MD at 12:46 EDT ,
== END | disposition home or self-care (01) ==
LOC: OPBI 10:50
PROVIDERS: PCP Family Medicine; Visit Provider Family Medicine
DX: Z12.31 Encounter for screening mammogram for malignant neoplasm of breast (principal)
CPT/HCPCS: 77063; 77067

== ENCOUNTER → 2023-07-13 | Outpatient (CLI) | payer OTHER, SELFPAY ==
--- NOTE | 2023-07-13 08:38 | BI_ITS ---
MAMMOGRAPHY - BILATERAL SCREENING REASON FOR EXAM: Female, 58 years old. Routine annual screening examination. PERTINENT HISTORY: Aunt with breast cancer. TECHNIQUE: Digital bilateral breast jai (3D mammographic acquisition) in the CC and MLO projections. 2-D mediolateral oblique (MLO) and craniocaudad (CC) views of both breasts were obtained. CAD: Full Field Digital Mammography with Computer Added Detection was performed. COMPARISON: Comparison is made with prior study June 23, 2022 and June 09, 2021. FINDINGS: Breast Composition: There are scattered areas of fibroglandular density. There are no dominant masses or suspicious calcifications. Stable benign-appearing bilateral axillary lymph nodes. No other significant abnormalities are identified. There has been no significant change since the prior study. BI/SCRN MAMM (CAD)W/JAI BILAT IMPRESSION: Stable bilateral screening mammogram. Yearly follow-up mammogram recommended. (A) ASSESSMENT CATEGORY: BIRADS Category 2: Benign. A letter regarding these results will be sent to the patient by the facility within 30 days. Approximately 10% of breast cancers are not detected by mammography. A normal mammogram should not delay biopsy of a clinically suspicious abnormality. [id number] Electronically Signed: Wilmer Hartley MD at 10:05 EST ,
== END | disposition home or self-care (01) ==
LOC: OPBI 08:36
PROVIDERS: PCP Family Medicine; Referring Provider Family Medicine; Visit Provider Family Medicine
DX: Z12.31 Encounter for screening mammogram for malignant neoplasm of breast (principal); Z80.3 Family history of malignant neoplasm of breast
CPT/HCPCS: 77063; 77067

== ENCOUNTER → 2023-12-10 | Outpatient (CLI) | payer OTHER, SELFPAY | END | disposition home or self-care (01) | LOC: BFHLAB 10:50 → LABSPEC 12-11 02:36 | PROVIDERS: PCP Family Medicine; Visit Provider Family Medicine | DX: R30.0 Dysuria (principal) | CPT/HCPCS: 87086; 87088 ==

== ENCOUNTER → 2023-12-14 | Outpatient (CLI) | payer OTHER, SELFPAY ==
--- NOTE | 2023-12-14 08:07 | MRI_ITS ---
STUDY: MRI BRAIN WITH AND WITHOUT CONTRAST (ATTENTION INTERNAL AUDITORY CANALS - I.A.C.''s) REASON FOR EXAM: Female, 58 years old. UNILAT HEARING LOSS LEFT EAR TECHNIQUE: Standardized multiplanar fat and water weighted pulse sequences were obtained. ml of 19ml lariscan contrast material was administered intravenously for the contrast portion of the examination. COMPARISON: None. FINDINGS: Internal auditory canal findings: Normal bilateral temporal bones. Normal bilateral internal auditory canals. There is no demonstrated intracanalicular or cisternal vestibular schwannoma (acoustic neuroma). There is no enhancement of the bilateral VIIth or VIIIth cranial nerves. Normal bilateral cochlea, vestibules and semicircular canals. No mastoid air cell opacification is present. No cerebellar pontine angle mass or cyst is seen. There is no demonstrated lesions of the cavernous sinus. No nodularity or abnormal enhancement is seen in the 7th or 8th cranial nerves within IACs. No demonstrated Mondini''s malformation. BRAIN FINDINGS: Normal size of the ventricles and extra-axial spaces for the patient''s age. Normal white matter tracts of the supratentorial brain. No hydrocephalus or midline shift is present. There are no visualized ring-enhancing lesions of the brain parenchyma or abnormal thickening or enhancement of the meninges or dura. Normal bilateral basal ganglia. Normal thalami. Normal flow voids within the major intracranial circulation suggesting patency by spin echo criteria. Normal venous enhancement. There is no enhancing intra-axial or extra-axial abnormality. There is no extra-axial fluid accumulation. Normal sella turcica, pituitary gland, infundibular stalk, optic chiasm and hypothalamus. Normal tectal plate and pineal gland. Normal midbrain, pastora and medulla. Normal cerebellum. Normal basal cisterns. No demonstrated orbital abnormality, within the constraints of a routine brain study. Normal visualized paranasal sinuses. Normal calvarium and skull base. Normal visualized soft tissue structures. Normal visualized upper cervical spine. MRI/Brain W/WO Contrast IMPRESSION: 1. Normal unenhanced and enhanced MRI of the bilateral internal auditory canals (I.A.C''s). 2. Normal enhanced MRI of the brain. Electronically Signed: Jam Warren MD at 12:56 EDT ,
[2023-12-14 08:35] LABS: CREATININE FINGERSTICK < 1.0 mg/dL (0.55-1.02); EGFR FINGERSTICK > 60.0000 mL/min (>60)
== END | disposition home or self-care (01) ==
PROVIDERS: PCP Family Medicine; Referring Provider Otolaryngology Otolaryngology/Facial Plastic Surgery; Visit Provider Otolaryngology Otolaryngology/Facial Plastic Surgery
DX: H90.42 Sensorineural hearing loss, unilateral, left ear, with unrestricted hearing on the contralateral side (principal)
CPT/HCPCS: 70553; A9575

== ENCOUNTER → 2024-01-04 | Outpatient (CLI) | payer OTHER, SELFPAY ==
[2024-01-04 10:01] LABS: Absolute Lymphocyte Count 1.46 X10^3/uL (0.83-4.51); Absolute Neutrophil Count 5.3 X10^3/uL (2.0-7.7); Basophil# 0.04 X10^3/uL; Basophil% 0.5 % (0-1); Eosinophil# 0.24 X10^3/uL; Eosinophils% 3.2 % (0-5); Hematocrit 40.6 % (37-47); Hemoglobin 12.9 g/dL (12.0-15.0); Lymphocyte # 1.46 X10^3/ul (0.83-4.51); Lymphocyte % 19.2 % (19-41); Mean Corp Hgb Conc 31.8 g/dL (32-36); Mean Corpuscular Hgb 26.5 pg (27.0-32.0); Mean Corpuscular Volume 83.4 fL (81-99); Mean Platelet Vol. 8.8 fl (6.2-12.0); Monocyte# 0.58 X10^3/uL; Monocyte% 7.6 % (0-10); NRBC Flagged by Analyzer 0 % (0-5); Neutrophil # 5.25 X10^3/uL (2.7-7.7); Platelet Count 364 K/mm3 (150-450); RBC Distribution Width CV 15.1 % (11.6-14.6); RBC Distribution Width SD 46.3 fl (35.1-43.9); Red Blood Count 4.87 M/mm3 (4.2-5.4); White Blood Count 7.6 K/mm3 (4.4-11.0)
[2024-01-04 10:21] LABS: AST(SGOT) 22 U/L (15-37); Alanine Aminotransfer ALT/SGPT 18 U/L (13-56); Albumin, Serum 3.6 g/dL (3.2-5.0); Alkaline Phosphatase 84 U/L (45-117); Anion Gap 5 (5-15); BUN 21 mg/dL (7-18); BUN/Creat Ratio 21.3 RATIO (10-20); Calcium,Total 8.9 mg/dL (8.5-10.1); Chloride 105 mmol/L (98-107); Cholesterol 196 mg/dL (200); Creatinine, Serum 0.98 mg/dL (0.55-1.02); EST Glomerular Filtration Rate 61 mL/min (>60); Est Glom Filt Rate - Afr Amer 74 mL/min (>60); Globulin 3.7 g/dL (2.2-4.2); Glucose 95 mg/dL (74-106); High Density Lipoprotein 37 mg/dL; Potassium 3.8 mmol/L (3.5-5.1); Protein, Total 7.3 g/dL (6.4-8.2); Sodium Level 136 mmol/L (136-145); Triglycerides 274 mg/dL; Very Low Density Lipoprotein 55 mg/dL (5-40)
== END | disposition home or self-care (01) ==
LOC: MTLAB 07:28
PROVIDERS: PCP Family Medicine; Referring Provider Family Medicine; Visit Provider Family Medicine
DX: Z00.00 Encounter for general adult medical examination without abnormal findings (principal); I10 Essential (primary) hypertension; F51.04 Psychophysiologic insomnia; E87.6 Hypokalemia; E78.1 Pure hyperglyceridemia
CPT/HCPCS: 36415; 80053; 80061; 85025

== ENCOUNTER → 2024-07-18 | Outpatient (CLI) | payer OTHER, SELFPAY ==
--- NOTE | 2024-07-18 10:56 | BI_ITS ---
MAMMOGRAPHY - BILATERAL SCREENING REASON FOR EXAM: Female, 59 years old. Routine annual screening examination. PERTINENT HISTORY: Aunt with breast cancer. TECHNIQUE: Digital bilateral breast jai (3D mammographic acquisition) in the CC and MLO projections. 2-D mediolateral oblique (MLO) and craniocaudad (CC) views of both breasts were obtained. CAD: Full Field Digital Mammography with Computer Added Detection was performed. COMPARISON: Comparison is made with prior study dated July 13, 2023 and June 23, 2022. FINDINGS: Breast Composition: There are scattered areas of fibroglandular density. There are no dominant masses or suspicious calcifications. Stable small benign appearing bilateral axillary lymph nodes. No other significant abnormalities are identified. There has been no significant change since the prior study. BI/SCRN MAMM (CAD)W/JAI BILAT IMPRESSION: Stable bilateral screening mammogram. Yearly follow-up mammogram recommended. (A) ASSESSMENT CATEGORY: BIRADS Category 2: Benign. A letter regarding these results will be sent to the patient by the facility within 30 days. Approximately 10% of breast cancers are not detected by mammography. A normal mammogram should not delay biopsy of a clinically suspicious abnormality. [id number] Electronically Signed: Wilmer Hartley MD at 11:36 EST ,
== END | disposition home or self-care (01) ==
LOC: OPBI 10:54
PROVIDERS: PCP Family Medicine; Referring Provider Family Medicine; Visit Provider Family Medicine
DX: Z12.31 Encounter for screening mammogram for malignant neoplasm of breast (principal)
CPT/HCPCS: 77063; 77067

== ENCOUNTER → 2025-07-31 | Outpatient (CLI) | payer OTHER, SELFPAY ==
--- NOTE | 2025-07-31 10:49 | BI_ITS ---
EXAM: SCRN MAMM (CAD)W/JAI BILAT DATE: 07/31/2025 CLINICAL HISTORY: F, Age 60 y/o , SCREENING TECHNIQUE: Procedure Code: [id number] Modality: MG Procedure: SCRN MAMM (CAD)W/JAI BILAT COMPARISON: Prior exam(s) dated 07/18/2024, 07/13/2023, and 06/23/2022. FINDINGS: TISSUE DENSITY: There are scattered areas of fibroglandular density. Bilateral Breast Mammographic Findings: No significant masses, calcifications or other abnormalities are identified. BI/SCRN MAMM (CAD)W/JAI BILAT IMPRESSION: Benign screening mammogram OVERALL FINAL ASSESSMENT BI-RADS 2: BENIGN RECOMMENDATION: Routine annual follow-up in 1 Year Additional Recommendation none A letter with findings and recommendations will be mailed to the patient. Reading Location: [id number]
--- OUTSIDE RECORDS SUMMARY | 2025-07-31 11:07 | XMS RPT_ITS | CCD ---
Author Organization [facility] Care Team Providers Care Tax Lawyer Name Role Phone Dr. Vani Whitten Primary Care Provider [phone] Vani Whitten Referring Provider [phone] Dr. Néstor Saab Attending Provider Vani Whitten Primary Care Unavailable Vani Whitten Attending Unavailable Vani Whitten Referring Unavailable Vani Whitten Attending Unavailable Vani Whitten Referring Unavailable Vani Whitten Primary Care Unavailable Vani Whitten Primary Care Unavailable Vani Whitten Attending Unavailable Allergies Allergy Classification Reported Allergen(s) Allergy Type Date of Onset Reaction(s) Facility (6 sources) Codeine Drug Allergy 12-27-2021 PANIC ATTACKS [facility] (6 sources) oxyCODONE Drug Allergy 12-27-2021 Other [facility] (1 source) Codeine Drug Allergy 09-25-2023 [facility] Repository (1 source) oxyCODONE Drug Allergy 09-25-2023 [facility] Repository Medications Current Medications Medication Drug Class(es) Dates Sig (Normalized) Sig (Original) aMILoride hydrochloride 5 mg oral tablet (3 sources) Potassium-spa ring Diuretic Start: 4 take 5 mg by mouth once daily Amiloride Active 5 MG PO DAILY September 25, 2023 1:00am hydroCHLOROthiazide 25 mg oral tablet (9 sources) Thiazide Diuretic Start: 4 take 25 mg by mouth once daily Hydrochlorothiazide Active 25 MG PO DAILY September 25, 2023 1:00am Start: 10-10-2014 End: 09-25-2023 take 25 mg by mouth once daily Hydrochlorothiazide Discontinued 25 MG PO DAILY October 10, 2014 1:00am September 25, 2023 7:53am losartan potassium 25 mg oral tablet (6 sources) Angiotensin 2 Receptor Kailee Start: 07-18-2017 take 25 mg by mouth once daily Losartan Active 25 MG PO DAILY July 18, 2017 1:00am Magnesium (6 sources) Start: 07-12-2017 take 250 mg by mouth once daily Magnesium Active 250 MG PO DAILY July 12, 2017 4:13pm Start: 07-12-2017 take 250 mg by mouth once rita y Magnesium Active 250 MG PO DAILY July 12, 2017 1:00am Start: 07-12-2017 take 250 mg by mouth once rita y Magnesium Active 250 MG PO DAILY July 12, 2017 12:00am 24 hr metoprolol succinate 100 mg extended release oral tablet (6 sources) beta-Adrenergic Kailee Start: 10-10-2014 take 100 mg by mouth once daily Metoprolol Succinate Active 100 MG PO DAILY October 10, 2014 1:00am Jackson-3 Fatty Acids-Fish Oil (Fish Oil) 1 EACH capsule (6 sources) Start: 07-12-2017 take 1 tablet by mouth once daily Jackson-3 Fatty Acids-Fish Oil (Fish Oil) 1 EACH capsule Active 1 TABLET PO DAILY July 12, 2017 4:13pm Start: 07-12-2017 take 1 tablet by allan th once daily Jackson-3 Fatty Acids-Fish Oil (Fish Oil) 1 EACH capsule Active 1 TABLET PO DAILY July 12, 2017 1:00am Start: 07-12-2017 take 1 tablet by allan th once daily Jackson-3 Fatty Acids-Fish Oil (Fish Oil) 1 EACH capsule Active 1 TABLET PO DAILY July 12, 2017 12:00am omeprazole 40 mg delayed release oral capsule (3 sources) Proton Pump Inhibitor Start: 09-25-2023 take 40 mg by mouth once daily Omeprazole Active 40 MG PO DAILY September 25, 2023 1:00am temazepam 7.5 mg oral capsule (9 sources) Benzodiazepine Start: 09-25-2023 take 7.5 mg by mouth at bedtime Temazepam Active 7.5 MG PO AT BEDTIME September 25, 2023 1:00am Start: 07-12-2017 End: 09-25-2023 take 15 mg by mouth at bedtime Temazepam Discontinued 15 MG PO AT BEDTIME July 12, 2017 1:00am September 25, 2023 7:53am traZODone hydrochloride 150 mg oral tablet (9 sources) Serotonin Reuptake Inhibitor Start: 09-25-2023 take 150 mg by mouth once daily Trazodone Active 150 MG PO DAILY September 25, 2023 1:00am Start: 02-22-2018 End: 09-25-2023 take 75 mg by mouth at bedtime Trazodone Discontinued 75 MG PO AT BEDTIME February 22, 2018 12:00am September 25, 2023 7:54am Completed/Discontinued Medications Medication Drug Class(es) Dates Sig (Normalized) Sig (Original) estradiol 0.5 mg oral tablet (6 sources) Estrogen Start: 02-20-2018 End: 09-25-2023 take 1 mg by mouth once daily Estradiol Discontinued 1 MG PO DAILY February 20, 2018 12:00am September 25, 2023 7:52am microencapsulated potassium chloride 20 meq extended release oral tablet (12 sources) Start: 08-07-2018 End: 09-25-2023 take 40 mEq by mouth once daily Potassium Chloride Discontinued 40 MEQ PO DAILY August 07, 2018 1:00am September 25, 2023 7:53am Start: 02-20-2018 Potassium Chlo ride (K-Dur) 20 MEQ tablet Active 20 MEQ PO DAILY February 20, 2018 12:00am Problems Problem Classification Problem Date Documented Da te Episodic/Chronic Essential hypertension (6 sources) Benign essential hypertension; Translations: [Essential (primary) hypertension] 02-28-2018 Chronic Mood disorders (6 sources) Depressive disorder; Translations: [Depression] 02-28-2018 Chronic Nonspecific chest pain (6 sources) Chest pain; Translations: [Chest pain, unspecified] 01-04-2022 Episodic Other lower respiratory disease (6 sources) Chronic cough; Translations: [Chronic cough] 09-25-2023 Episodic Other lower respiratory disease (3 sources) Wheezing; Translations: [Wheezing] 09-25-2023 Episodic Other screening for suspected conditions (not mental disorders or infectious disease) (2 sources) Encounter for screening mammogram for malignant neoplasm of breast; Translations: [Encounter for screening mammogram for malignant neoplasm of breast] Onset: 08-14-2024 Episodic Unclassified (6 sources) negative cardiac cath 02-28-2018 Results Test Name Value Interpretation Reference Range Facility SCRN MAMM (CAD)W/JAI BILATo n 07-18-2024 SCRN MAMM (CAD)W/JAI BILAT [facility] Imaging Services [address] [place], [place] [id number] SCRN MAMM (CAD)W/JAI BILAT MR#: [id number] Acct: [id number] Name: UDAY OLIVIER Rep #: [id number] : 1965 F 59 From: Wilmer julian MD PCP: Dr. Vani Whitten MD Status: [facility] Study: SCRN MAMM (CAD)W/JAI BILAT Date of Exam: 07/04 01/24 Exam# [id number] Ordering Dr: Vani Whitten MD -[id number] MAMMOGRAPHY - BILATERAL SCREENING REASON FOR EXAM: Female, 59 years old. Routine annual screening examination. PERTINENT HISTORY: Aunt with breast cancer. TECHNIQUE: Digital bilateral breast jai (3D mammographic acquisition) in the CC and MLO projections. 2-D mediolateral oblique (MLO) and craniocaudad (CC) views of both breasts were obtained. CAD: Full Field Digital Mammography with Computer Added Detection was performed. COMPARISON: Comparison is made with prior study dated July 13, 2023 and June 23, 2022. FINDINGS: Breast Composition: There are scattered areas of fibroglandular density. There are no dominant masses or suspicious calcifications. Stable small benign appearing bilateral axillary lymph nodes. No other significant abnormalities are identified. There has been no significant change since the prior study. BI/SCRN MAMM (CAD)W/JAI BILAT IMPRESSION: Stable bilateral screening mammogram. Yearly follow-up mammogram recommended. (A) ASSESSMENT CATEGORY: BIRADS Category 2: Benign. A letter regarding these results will be sent to the patient by the facility within 30 days. Approximately 10% of breast cancers are not detected by mammography. A normal mammogram should not delay biopsy of a clinically suspicious abnormality. [id number] Electronically Signed: Wilmer Hartley MD at 11:36 EST , CC: Dr. Vani Whitten MD Delinquent Account Clerk: Signed Normal [facility] Absolute lymphocyte countOrd ered By: Vani Whitten on 01-04-2024 Lymphocytes Auto (Unsp spec) [#/Vol] 1.46 10*3/uL 0.83-4.51 [facility] Automated lymphocyte count a s percentage of total leukocytesOrdered By: Vani Whitten on 01-04-2024 Lymphocytes/100 WBC Auto (Unsp spec) 19.2 % 19-41 [facility] Basophil percentageOrdered B y: Vani Whitten on 01-04-2024 Basophils/100 WBC (Bld) 0.5 % 0-1 [facility] Bilirubin [Mass/Vol] 0.30 mg/dL 0.20-1.00 [facility] Comment on above: For patients on eltr ombopag therapy, use of Dimension [place] TBIL is not recommended. Chloride [Moles/Vol] 105 mmol/L 98-107 [facility] Cholesterol [Mass/Vol] 196 mg/dL <200 [facility] Comment on above: <200 mg/dL Desirable 200-240 mg/dL Borderline >240 mg/dL High Risk Eosinophils/100 WBC (Bld) 3.2 % 0-5 [facility] Glucose [Mass/Vol] 95 mg/dL 74-106 [facility] Hemoglobin (Bld) [Mass/Vol] 12.9 g/dL 12.0-15.0 [facility] Monocytes/100 WBC (Bld) 7.6 % 0-10 [facility] Neutrophils (Bld) [#/Vol] 5.3 10*3/uL 2.0-7.7 [facility] Neutrophils/100 WBC (Bld) 69.0 % 47-70 [facility] Potassium [Moles/Vol] 3.8 mmol/L 3.5-5.1 [facility] Protein [Mass/Vol] 7.3 g/dL 6.4-8.2 [facility] Sodium [Moles/Vol] 136 mmol/L 136-145 [facility] Triglyceride [Mass/Vol] 274 mg/dL <199 [facility] Comment on above: The drugs N-Acetylcy steine and Metamizole may falsely depress this assay.Serum Triglycerides Reference Interval Normal <150 mg/dL Borderline high 150 - 199 mg/dL High 200 - 499 mg/dL Very High > or = 500 mg/dL WBC (Bld) [#/Vol] 7.6 10*3/uL 4.4-11.0 [facility] Determination of erythrocyte mean corpuscular volume (MCV)Ordered By: Vani Whitten on 01-04-2024 MCV (RBC) [Entitic vol] 83.4 fL 81-99 [facility] Erythrocyte distribution wid th ratioOrdered By: Vani Whitten on 01-04-2024 Erythrocyte distribution width (RBC) [Ratio] 15.1 % 11.6-14.6 [facility] Erythrocyte distribution wid th standard deviationOrdered By: Vani Whitten on 01-04-2024 Erythrocyte distribution width (RBC) [Entitic vol] 46.3 fL 35.1-43.9 [facility] Hematocrit Auto (Bld) [Volum e fraction]Ordered By: Vani Whitten on 01-04-2024 Hematocrit (Bld) [Volume fraction] 40.6 % 37-47 [facility] Immature granulocytes/100 WB C Auto (Bld)Ordered By: Vani Whitten on 01-04-2024 Immature granulocytes/100 WBC (Bld) 0.500 % 0.0-0.9 [facility] Comment on above: IG% - Immature Granu locytes (promyelocytes, myelocytes and metamyelocytes) > 1% indicates that a LEFT SHIFT is Present. Laboratory - Chemistry and C hemistry - challengeOrdered By: Vani Whitten on 01-04-2024 Albumin/Globulin [Mass ratio] 1.0 {ratio} 0.9-2.4 [facility] ALP [Catalytic activity/Vol] 84 U/L 45-117 [facility] ALT [Catalytic activity/Vol] 18 U/L 13-56 [facility] Cholesterol in HDL [Mass/Vol] 37 mg/dL >40 [facility] Comment on above: The drugs N-Acetylcy steine and Metamizole may falsely depress this assay. Reference Range HDL <40 mg/dL Low HDL Cholesterol HDL >or= 60 mg/dL High HDL Cholesterol Cholesterol in LDL [Mass/Vol] 104 mg/dL 0-130 [facility] CO2 [Moles/Vol] 26.0 mmol/L 21.0-32.0 [facility] Globulin (S) [Mass/Vol] 3.7 g/dL 2.2-4.2 [facility] Urea nitrogen/Creatinine [Mass ratio] 21.3 mg/mg 10-20 [facility] Laboratory - Hematology and Cell countsOrdered By: Vani Whitten on 01-04-2024 MCH (RBC) [Entitic mass] 26.5 pg 27.0-32.0 [facility] MCHC (RBC) [Mass/Vol] 31.8 g/dL 32-36 [facility] Nucleated RBC/100 WBC (Bld) [Ratio] 0 % 0-5 [facility] Platelet mean volume (Bld) [Entitic vol] 8.8 fL 6.2-12.0 [facility] Platelets (Bld) [#/Vol] 364 10*3/uL 150-450 [facility] No Panel InformationOrdered By: Vani Whitten on 01-04-2024 Estimated GFR (MDRD) Amer 74 mL/min >60 [facility] Comment on above: GFR Calc Estimated GFR (MDRD) Non-Af Amer 61 mL/min >60 [facility] Comment on above: Non- GFR Calc VLDL Cholesterol 55 mg/dL 5-40 [facility] RBC Auto (Bld) [#/Vol]Ordere d By: Vani Whitten on 01-04-2024 RBC (Bld) [#/Vol] 4.87 10*6/uL 4.2-5.4 [facility] Serum or plasma calcium aleshia urement (mass/volume)Ordered By: Vani Whitten on 01-04-2024 Calcium [Mass/Vol] 8.9 mg/dL 8.5-10.1 [facility] Serum or plasma creatinine m easurement (mass/volume)Ordered By: Vani Whitten on 01-04-2024 Creatinine [Mass/Vol] 0.98 mg/dL 0.55-1.02 [facility] Comment on above: The validity of the calculated GFR & GFRAA in patients over 70 years has not been determined. Clinical correlation is essential. Serum or plasma urea nitroge n measurement (mass/volume)Ordered By: Vani Whitten on 01-04-2024 Urea nitrogen [Mass/Vol] 21 mg/dL 7-18 [facility] Thin prep Papanicolaou smear with manual screeningOrdered By: Vani Whitten on 01-04-2024 Thin prep Papanicolaou smear with manual screening 3.6 g/dL 3.2-5.0 [facility] Thin prep Papanicolaou smear with manual screening 22 U/L 15-37 [facility] Thin prep Papanicolaou smear with manual screening 5 5-15 [facility] Basophil percentageOrdered B y: Kwasi Lim on 12-14-2023 Basophil percentage < 1.0 mg/dL 0.55-1.02 [facility] No Panel InformationOrdered By: Kwasi Lim on 12-14-2023 Bedside Estimated GFR (eGFR) > 60.0000 mL/min >60 [facility] Culture, urineOrdered By: Ashish Whitten on 12-10-2023 Bacteria identified Cx Nom (U) Positive [facility] Absolute lymphocyte counton 04-28-2022 Lymphocytes Auto (Unsp spec) [#/Vol] 1.66 10*3/uL 0.83-4.51 [facility] Work Phone: Basophil percentageon 2021 Basophils/100 WBC (Bld) 0.6 % 0-1 [facility] Work Phone: Bilirubin [Mass/Vol] 0.30 mg/dL 0.20-1.00 [facility] Work Phone: Comment on above: For patients on eltr ombopag therapy, use of Dimension [place] TBIL is not recommended. Chloride [Moles/Vol] 105 mmol/L 98-107 [facility] Work Phone: Cholesterol [Mass/Vol] 203 mg/dL <200 [facility] Work Phone: Comment on above: <200 mg/dL Desirable 200-240 mg/dL Borderline >240 mg/dL High Risk Eosinophils/100 WBC (Bld) 1.9 % 0-5 [facility] Work Phone: Glucose [Mass/Vol] 99 mg/dL 74-106 [facility] Work Phone: Neutrophils (Bld) [#/Vol] 6.2 10*3/uL 2.0-7.7 [facility] Work Phone: Neutrophils/100 WBC (Bld) 70.4 % 47-70 [facility] Work Phone: Potassium [Moles/Vol] 3.6 mmol/L 3.5-5.1 [facility] Work Phone: Protein [Mass/Vol] 8.0 g/dL 6.4-8.2 [facility] Work Phone: Sodium [Moles/Vol] 137 mmol/L 136-145 [facility] Work Phone: Triglyceride [Mass/Vol] 264 mg/dL <199 [facility] Work Phone: Comment on above: The drugs N-Acetylcy steine and Metamizole may falsely depress this assay.Serum Triglycerides Reference Interval Normal <150 mg/dL Borderline high 150 - 199 mg/dL High 200 - 499 mg/dL Very High > or = 500 mg/dL WBC (Bld) [#/Vol] 8.8 10*3/uL 4.4-11.0 [facility] Work Phone: Blood erythrocytes count (nu mber/volume)on 04-28-2022 RBC (Bld) [#/Vol] 5.12 10*6/uL 4.2-5.4 [facility] Work Phone: Blood hemoglobin measurement (mass/volume)on 04-28-2022 Hemoglobin (Bld) [Mass/Vol] 13.8 g/dL 12.0-15.0 [facility] Work Phone: Blood lymphocytes/100 leukoc yteson 04-28-2022 Lymphocytes/100 WBC (Bld) 18.9 % 19-41 [facility] Work Phone: Blood monocytes/100 leukocyt eson 04-28-2022 Monocytes/100 WBC (Bld) 7.3 % 0-10 [facility] Work Phone: Blood platelet mean volumeon 04-28-2022 Platelet mean volume (Bld) [Entitic vol] 8.4 fL 6.2-12.0 [facility] Work Phone: Determination of erythrocyte mean corpuscular volume (MCV)on 04-28-2022 MCV (RBC) [Entitic vol] 84.2 fL 81-99 [facility] Work Phone: Hematocrit Auto (Bld) [Volum e fraction]on 04-28-2022 Hematocrit (Bld) [Volume fraction] 43.1 % 37-47 [facility] Work Phone: Laboratory - Chemistry and C hemistry - challengeon 04-28-2022 ALP [Catalytic activity/Vol] 94 U/L 45-117 [facility] Work Phone: ALT [Catalytic activity/Vol] 17 U/L 13-56 [facility] Work Phone: CO2 [Moles/Vol] 28.0 mmol/L 21.0-32.0 [facility] Work Phone: Globulin (S) [Mass/Vol] 4.4 g/dL 2.2-4.2 [facility] Work Phone: Urea nitrogen/Creatinine [Mass ratio] 24.4 mg/mg 10-20 [facility] Work Phone: Laboratory - Hematology and Cell countson 04-28-2022 Erythrocyte distribution width (RBC) [Entitic vol] 44.3 fL 35.1-43.9 [facility] Work Phone: Erythrocyte distribution width (RBC) [Ratio] 14.6 % 11.6-14.6 [facility] Work Phone: Immature granulocytes/100 WBC (Bld) 0.900 % 0.0-0.9 [facility] Work Phone: Comment on above: IG% - Immature Granu locytes (promyelocytes, myelocytes and metamyelocytes) > 1% indicates that a LEFT SHIFT is Present. MCH (RBC) [Entitic mass] 27.0 pg 27.0-32.0 [facility] Work Phone: Nucleated RBC/100 WBC (Bld) [Ratio] 0 % 0-5 [facility] Work Phone: MCHC Auto (RBC) [Mass/Vol]on 04-28-2022 MCHC (RBC) [Mass/Vol] 32.0 g/dL 32-36 [facility] Work Phone: No Panel Informationon 04-28 Estimated GFR (MDRD) Amer 87 mL/min >60 [facility] Work Phone: Comment on above: GFR Calc Estimated GFR (MDRD) Non-Af Amer 72 mL/min >60 [facility] Work Phone: Comment on above: Non- GFR Calc Platelets bldon 04-28-2022 Platelets (Bld) [#/Vol] 366 10*3/uL 150-450 [facility] Work Phone: Serum or plasma albumin aleshia urement (mass/volume)on 04-28-2022 Albumin [Mass/Vol] 3.6 g/dL 3.2-5.0 [facility] Work Phone: Serum or plasma albumin/glob ulin mass ratioon 04-28-2022 Albumin/Globulin [Mass ratio] 0.8 {ratio} 0.9-2.4 [facility] Work Phone: Serum or plasma calcium aleshia urement (mass/volume)on 04-28-2022 Calcium [Mass/Vol] 8.8 mg/dL 8.5-10.1 [facility] Work Phone: Serum or plasma cholesterol in HDL measurement (mass/volume)on 04-28-2022 Cholesterol in HDL [Mass/Vol] 38 mg/dL >40 [facility] Work Phone: Comment on above: The drugs N-Acetylcy steine and Metamizole may falsely depress this assay. Reference Range HDL <40 mg/dL Low HDL Cholesterol HDL >or= 60 mg/dL High HDL Cholesterol Serum or plasma cholesterol in VLDL measurement (mass/volume)on 04-28-2022 Cholesterol in VLDL [Mass/Vol] 53 mg/dL 5-40 [facility] Work Phone: Serum or plasma creatinine m easurement (mass/volume)on 04-28-2022 Creatinine [Mass/Vol] 0.86 mg/dL 0.55-1.02 [facility] Work Phone: Comment on above: The validity of the calculated GFR & GFRAA in patients over 70 years has not been determined. Clinical correlation is essential. Serum or plasma low density lipoprotein (LDL) cholesterol measurement (mass/volume)on 04-28-2022 Cholesterol in LDL [Mass/Vol] 112 mg/dL 0-130 [facility] Work Phone: Serum or plasma urea nitroge n measurement (mass/volume)on 04-28-2022 Urea nitrogen [Mass/Vol] 21 mg/dL 7-18 [facility] Work Phone: Thin prep Papanicolaou smear with manual screeningon 04-28-2022 Thin prep Papanicolaou smear with manual screening 14 U/L 15-37 [facility] Work Phone: Thin prep Papanicolaou smear with manual screening 4 5-15 [facility] Work Phone: Absolute lymphocyte counton 12-27-2021 Lymphocytes Auto (Unsp spec) [#/Vol] 1.65 10*3/uL 0.83-4.51 [facility] Work Phone: Basophil percentageon 2021 Basophils/100 WBC (Bld) 0.4 % 0-1 [facility] Work Phone: Chloride [Moles/Vol] 103 mmol/L 98-107 [facility] Work Phone: Eosinophils/100 WBC (Bld) 1.1 % 0-5 [facility] Work Phone: Glucose [Mass/Vol] 102 mg/dL 74-106 [facility] Work Phone: Comment on above: Fasting Glucose resu lt from 100 to 125 mg/dL suggests IMPAIRED HOMEOSTASIS per A.D.A. criteria. Neutrophils (Bld) [#/Vol] 8.0 10*3/uL 2.0-7.7 [facility] Work Phone: Neutrophils/100 WBC (Bld) 75.4 % 47-70 [facility] Work Phone: Potassium [Moles/Vol] 3.5 mmol/L 3.5-5.1 [facility] Work Phone: Sodium [Moles/Vol] 136 mmol/L 136-145 [facility] Work Phone: WBC (Bld) [#/Vol] 10.7 10*3/uL 4.4-11.0 [facility] Work Phone: Blood erythrocytes count (nu mber/volume)on 12-27-2021 RBC (Bld) [#/Vol] 5.11 10*6/uL 4.2-5.4 [facility] Work Phone: Blood hemoglobin measurement (mass/volume)on 12-27-2021 Hemoglobin (Bld) [Mass/Vol] 13.8 g/dL 12.0-15.0 [facility] Work Phone: Blood lymphocytes/100 leukoc yteson 12-27-2021 Lymphocytes/100 WBC (Bld) 15.5 % 19-41 [facility] Work Phone: Blood monocytes/100 leukocyt eson 12-27-2021 Monocytes/100 WBC (Bld) 7.0 % 0-10 [facility] Work Phone: Blood platelet mean volumeon 12-27-2021 Platelet mean volume (Bld) [Entitic vol] 8.4 fL 6.2-12.0 [facility] Work Phone: Determination of erythrocyte mean corpuscular volume (MCV)on 12-27-2021 MCV (RBC) [Entitic vol] 83.2 fL 81-99 [facility] Work Phone: Hematocrit Auto (Bld) [Volum e fraction]on 12-27-2021 Hematocrit (Bld) [Volume fraction] 42.5 % 37-47 [facility] Work Phone: Laboratory - Chemistry and C hemistry - challengeon 12-27-2021 CO2 [Moles/Vol] 28.0 mmol/L 21.0-32.0 [facility] Work Phone: Urea nitrogen/Creatinine [Mass ratio] 16.1 mg/mg 10-20 [facility] Work Phone: Laboratory - Hematology and Cell countson 12-27-2021 Erythrocyte distribution width (RBC) [Entitic vol] 43.0 fL 35.1-43.9 [facility] Work Phone: Erythrocyte distribution width (RBC) [Ratio] 14.2 % 11.6-14.6 [facility] Work Phone: Immature granulocytes/100 WBC (Bld) 0.600 % 0.0-0.9 [facility] Work Phone: Comment on above: IG% - Immature Granu locytes (promyelocytes, myelocytes and metamyelocytes) > 1% indicates that a LEFT SHIFT is Present. MCH (RBC) [Entitic mass] 27.0 pg 27.0-32.0 [facility] [facility] Work Phone: Nucleated RBC/100 WBC (Bld) [Ratio] 0 % 0-5 [facility] Work Phone: MCHC Auto (RBC) [Mass/Vol]on 12-27-2021 MCHC (RBC) [Mass/Vol] 32.5 g/dL 32-36 [facility] Work Phone: No Panel Informationon 12-27 Troponin I High Sensitivity 3 pg/mL 3.0-54.0 [facility] Work Phone: Comment on above: Please Note: New [place] t Units and Gender Specific Reference Ranges. For more information see Policy Stat Procedure [place] High Sensitivity Troponin (TNIH) and attachments. D-Dimer Quantitative (PE/DVT) 0.29 FEU/ug/m 0.27-0.49 [facility] Work Phone: Comment on above: NORMAL D-Dimer level (<0.50) indicates no DVT or PE. Estimated Creatinine Clearance Calc 52.79 ml/min [facility] Work Phone: Estimated GFR (MDRD) Amer 80 mL/min >60 [facility] Work Phone: Comment on above: GFR Calc Estimated GFR (MDRD) Non-Af Amer 66 mL/min >60 [facility] Work Phone: Comment on above: Non- GFR Calc Platelets bldon 12-27-2021 Platelets (Bld) [#/Vol] 355 10*3/uL 150-450 [facility] Work Phone: Serum or plasma calcium aleshia urement (mass/volume)on 12-27-2021 Calcium [Mass/Vol] 9.3 mg/dL 8.5-10.1 [facility] Work Phone: Serum or plasma creatinine m easurement (mass/volume)on 12-27-2021 Creatinine [Mass/Vol] 0.93 mg/dL 0.55-1.02 [facility] Work Phone: Comment on above: The validity of the calculated GFR & GFRAA in patients over 70 years has not been determined. Clinical correlation is essential. Serum or plasma urea nitroge n measurement (mass/volume)on 12-27-2021 Urea nitrogen [Mass/Vol] 15 mg/dL 7-18 [facility] Work Phone: Thin prep Papanicolaou smear with manual screeningon 12-27-2021 Thin prep Papanicolaou smear with manual screening 5 5-15 [facility] Work Phone: Vital Signs Date Time Vital Sign Value Performing Clinician Faci lity 09-25-2023 05:57-0500 Body height 157.[address] Vani Whitten Work Phone: [facility] 09-25-2023 05:57-0500 Body mass index (BMI) [Ratio] 41.8 kg/m2 Dr. Vani Whitten Work Phone: [facility] 09-25-2023 05:57-0500 Body temperature 97.7 [degF] Dr. Vani Whitten Work Phone: [facility] 09-25-2023 05:57-0500 Body weight 103.[address] Vani Whitten Work Phone: [facility] 09-25-2023 05:57-0500 Diastolic blood pressure 94 mm[Hg] Dr. Vani Whitten Work Phone: [facility] 09-25-2023 05:57-0500 Heart rate 84 /min Dr. Vani Whitten Work Phone: [facility] 09-25-2023 05:57-0500 SaO2% (BldA) [Mass fraction] 95 % Dr. Vani Whitten Work Phone: [facility] 09-25-2023 05:57-0500 Systolic blood pressure 143 mm[Hg] Dr. Vani Whitten Work Phone: [facility] 12-27-2021 18:45-0400 Diastolic blood pressure 76 mm[Hg] [facility] Work Phone: 12-27-2021 18:45-0400 Heart rate 67 /min [facility] Work Phone: 12-27-2021 18:45-0400 Respiratory rate 18 /min [facility] Work Phone: 12-27-2021 18:45-0400 SaO2% (BldA) [Mass fraction] 97 % [facility] Work Phone: 12-27-2021 18:45-0400 Systolic blood pressure 134 mm[Hg] [facility] Work Phone: 12-27-2021 15:28-0400 Body height 157.48 cm [facility] Work Phone: 12-27-2021 15:28-0400 Body mass index (BMI) [Ratio] 39.9 kg/m2 [facility] Work Phone: 12-27-2021 15:28-0400 Body temperature 97.2 [degF] [facility] Work Phone: 12-27-2021 15:28-0400 Body weight 99 kg [facility] Work Phone: Encounters Encounter Date Encounter Type Care Provider Facility Start: 07-31-2025 ambulatory Vani Whitten Facility: [facility] Start: 04-29-2025 ambulatory Vani Whitten Facility: [facility] Start: 07-18-2024 End: 07-18-2024 ambulatory Vani Whitten Facility:[facility] Start: 01-04-2024 End: 01-04-[address] Vani Whitten Work Phone: [facility] Work Phone: Start: 01-04-2024 End: 01-04-[address] Vani Whitten Work Phone: [facility] Work Phone: Start: 12-14-2023 End: 12-14-[address] Vani Whitten Work Phone: [facility] Work Phone: Start: 12-14-2023 End: 12-14-[address] Vani Whitten Work Phone: [facility] - [facility] Work Phone: Start: 12-10-2023 End: 12-10-[address] Vani Whitten Work Phone: [facility] Work Phone: Start: 12-10-2023 End: 12-10-[address] [facility] Work [facility]: Start: 09-25-2023 End: 09-25-[address] Vani Whitten Work Phone: [facility] Work Phone: Start: 07-13-2023 End: 07-13-2023 ambulatory [facility] Work Phone: Start: 07-13-2023 End: 07-13-2023 Patient encounter procedure [facility] Work Phone: Start: 06-23-2022 End: 06-23-2022 Patient encounter procedure [facility] Start: 04-28-2022 End: 04-28-2022 Patient encounter procedure [facility] Start: 12-27-2021 End: 12-27-2021 Emergency department patient visit [facility]-Emergency Department Procedures Date Procedure Procedure Detail Performing Clinician Start: 12-14-2023 MRI of brain with contrast Dr. Vani Whitten Work Phone: Start: 12-10-[address] Ninoska Whitten Work Phone: Start: 07-13-2023 Screening mammography Start: 06-23-2022 Screening mammography Start: 12-27-2021 Plain chest X-ray Plan of Treatment Date Care Activity Detail Author Patient Education ED Chest Pain, Uncertai n Cause [facility] Work Phone: Patient referral [facility] Work Phone: Immunizations Immunization Date Immunization Notes Care Provider Fady condon 07-11-2017 Influenza virus vaccine [facility] Payers Date Payer Category Payer Self-pay [id number] 2024 Unknown [id number] Private Health Insurance [facility] [id number] Unknown [id number] Unknown [id number] Unknown [facility] PACKAGE PLAN [id number] Unknown [id number] Unknown [id number] Unknown [id number] Social History Date Type Detail Facility Start: 12-27-2021 End: 09-25-2023 Tobacco smoking status NHIS Unknown if ever smoked [facility] Start: 03-16-2021 None [facility] Start: 03-16-2021 Homeless [facility] Start: 03-16-2021 Non-smoker [facility] Start: 1965 Sex Assigned At Female [facility] Mental Status Date Assessment Result Facility 12-27-2021 Cognitive function Level Of Cons ciousness Awake;Alert;Appropriate;Follow s Commands [facility] Work Phone: Evaluation note Note Date & Type Note Facility Evaluation note No assessment information availa ble [facility] Work Phone: Evaluation note Note Date & Type Note Facility Evaluation note Diagnosis Onset Date Chronic cough chronic [facility] Work Phone: Chief Complaint and Reason for Visit Chief Complaint cp Chief Complaint SCREENING Chief Complaint Encounter for other screening for malignant neopla Chief Complaint Chronic Wheezing Reason for Visit Chronic cough Chief Complaint Chronic Wheezing H90.42 Sensorineural hearing loss, unilateral, lef Reason for Visit Chronic cough Chief Complaint Chronic Wheezing H90.42 Sensorineural hearing loss, unilateral, lef FASTING Reason for Visit Chronic cough Advance Directives No Advanced Directives Records Found Advance Directive Response Recorded Date/ Time Living Will No December 27, 2021 3:44pm Power of Campus Supervisor No December 27 3:44pm Advance Directive Response Recorded Date/ Time Living Will No December 27, 2021 2:44pm Power of Campus Supervisor No December 27 2:44pm Summary Purpose Family History No Family History Records Found Additional Source Comments Goals (unrecognized section and content) Goals may be documented in a n alternate sectionGoals may be documented in an alternate sectionGoals may be documented in an alternate sectionGoals may be documented in an alternate sectionGoals may be documented in an alternate sectionGoals may be documented in an alternate section Care Teams (unrecognized sec tion and content) Team Status: Active Member Role Status Dates Dr. Vani Whitten MD Family Provider Active Dr. Vani Whitten MD Primary Care Provider Active Team Status: Inactive Member Role Status Dates Dr. Vani Whitten MD Primary Care Prov ider, Attending Provider, Referring Provider Active Team Status: Inactive Member Role Status Dates Dr. Vani Whitten MD Primary Care Provider, Referrin g Provider Active Dr. Néstor Saab MD Attending Provider Active Team Status: Inactive Member Role Status Dates Dr. Vani Whitten MD Primary Care Provider, Attendin g Provider Active Team Status: Inactive Member Role Status Dates Dr. Vani Whitten MD Primary Care Provider Active Dr. Kwasi Lim MD Attending Provider, Referring P rovider Active INFORMATION SOURCE (unrecogn ized section and content) DATE CREATED AUTHOR 07/15/2025 [facility] FOR RECORDS PERTAINING TO PATIENTS WHO ARE OR HAVE BEEN ENROLLED IN A CHEMICAL DEPENDENCY/SUBSTANCEABUSE PROGRAM, SOME INFORMATION MAY BE OMITTED. This clinical summary was aggregated from multiple sources. Caution should be exercised in using it in the provision of clinical care. This summary normalizes information from multiple sources, and as a consequence, information in this document may materially change the coding, format and clinical context of patient data. In addition, data may be omitted in some cases. CLINICAL DECISIONS SHOULD BE BASED ON THE PRIMARY CLINICAL RECORDS. [facility]. provides no warranty or guarantee of the accuracy or completeness of information in this document.
== END | disposition home or self-care (01) ==
LOC: OPBI 10:47
PROVIDERS: PCP Family Medicine; Referring Provider Family Medicine; Visit Provider Family Medicine
DX: Z12.31 Encounter for screening mammogram for malignant neoplasm of breast (principal)
CPT/HCPCS: 77063; 77067

== ENCOUNTER → 2025-09-01 | Outpatient (CLI) | payer OTHER, SELFPAY ==
[2025-09-01 10:36] LABS: Hematocrit 42.7 % (37-47); Hemoglobin 13.3 g/dL (12.0-15.0); Immature Granulocytes Count 0.050 X10^3/uL (0.0-0.0); Mean Corp Hgb Conc 31.1 g/dL (32-36); Mean Corpuscular Volume 84.4 fL (81-99); Mean Platelet Vol. 8.8 fl (6.2-12.0); NRBC Flagged by Analyzer 0 % (0-5); Platelet Count 376 K/mm3 (150-450); RBC Distribution Width CV 14.3 % (11.6-14.6); RBC Distribution Width SD 43.6 fl (35.1-43.9); Red Blood Count 5.06 M/mm3 (4.2-5.4); White Blood Count 8.3 K/mm3 (4.4-11.0)
[2025-09-01 10:59] LABS: AST(SGOT) 17 U/L (<=31); Alanine Aminotransfer ALT/SGPT 7 U/L (<=34); Albumin, Serum 4.2 g/dL (3.4-4.8); Alkaline Phosphatase 94 U/L (35-104); Anion Gap 9 (7-18); BUN 19 mg/dL (4-19); BUN/Creat Ratio 24.3 RATIO (10-20); Calcium,Total 9.4 mg/dL (7.6-11.0); Carbon Dioxide 26.2 mmol/L (20.0-29.0); Chloride 104 mmol/L (96-106); Cholesterol 203 mg/dL (<=200); Globulin 3.3 g/dL (2.2-4.2); Glucose 94 mg/dL (70-99); Low Density Lipoprotein Calc. 117 mg/dL; Potassium 4.3 mmol/L (3.5-5.1); Triglycerides 281 mg/dL; Very Low Density Lipoprotein 56 mg/dL (5-40); cholesterol:hdl ratio screen 5.56
== END | disposition home or self-care (01) ==
PROVIDERS: PCP Family Medicine; Referring Provider Family Medicine; Visit Provider Family Medicine
DX: Z00.00 Encounter for general adult medical examination without abnormal findings (principal); I10 Essential (primary) hypertension; F51.04 Psychophysiologic insomnia; E87.6 Hypokalemia; E78.1 Pure hyperglyceridemia
CPT/HCPCS: 36415; 80053; 80061; 85025